=== PATIENT | male | born 1970 | race Caucasian/White ===

== ENCOUNTER 2023-09-18 08:30 | Outpatient (OUT) | payer OTHER, SELFPAY ==
[2023-09-18 08:46] LABS: Basophils Absolute Auto 0.1 10^3/uL (0.0-0.1); Basophils Percent Auto 0.8 % (0.2-2.0); Eosinophils Absolute Auto 0.1 10^3/uL (0.0-0.7); Eosinophils Percent Auto 2.3 % (0.9-7.0); Hemoglobin 14.3 g/dL (14.0-18.0); Immature Granulocytes Abs Auto 0.02 10^3/uL (0.00-0.03); Immature Granulocytes Pct Auto 0.3 % (0.0-0.5); Lymphocytes Absolute Auto 1.9 10^3/uL (1.2-3.8); Lymphocytes Percent Auto 32.1 % (20.5-60.0); Mean Corpuscular HGB Conc 33.3 g/dL (29.9-35.2); Mean Corpuscular Hemoglobin 29.4 pg (25.9-34.0); Mean Corpuscular Volume 88.3 fL (80.0-94.0); Mean Platelet Volume 10.3 fL (9.5-13.5); Monocytes Absolute Auto 0.7 10^3/uL (0.3-0.8); Neutrophils Absolute Auto 3.2 10^3/uL (1.4-6.5); Neutrophils Percent Auto 53.5 % (43.0-75.0); Platelet Count 200 10^3/uL (150-450); Red Blood Count 4.87 10^6/uL (4.70-6.10); Red Cell Distribution Width 12.8 % (11.0-15.0)
[2023-09-18 09:57] LABS: Alanine Aminotransferase 31 U/L (16-63); Albumin Level 3.7 g/dL (3.4-5.0); Alkaline Phosphatase 59 U/L (46-116); Anion Gap 12.7; Aspartate Amino Transferase 19 U/L (15-37); Bilirubin Total 0.4 mg/dL (0.2-1.0); Calcium 9.1 mg/dL (8.5-10.1); Carbon Dioxide 27.5 mmol/L (21.0-32.0); Chloride 104 mmol/L (98-107); Cholesterol 211 mg/dL (<=200); Estimated GFR (African America >60 (>=60); Estimated GFR (Non-African Ame >60 (>=60); Globulin 3.6 g/dL; Glucose 110 mg/dL (74-106); HDL Cholesterol 70 mg/dL (40-60); Potassium 4.2 mmol/L (3.5-5.1); Sodium 140 mmol/L (136-145); Total Protein 7.3 g/dL (6.4-8.2); Triglycerides 49 mg/dL (<=150); VLDL CHOLESTEROL 9.8 mg/dL
[2023-09-18 10:15] LABS: Prostate Specific Antigen Scrn 1.33 ng/mL (<=4.00)
== END 2023-09-18 08:31 | disposition home or self-care (01) ==
LOC: LAB 08:33
PROVIDERS: PCP Internal Medicine; Visit Provider Internal Medicine
DX: Z00.00 Encounter for general adult medical examination without abnormal findings (principal)
CPT/HCPCS: 36415; 80053; 80061; 85025; G0103

== ENCOUNTER 2024-09-23 09:22 | Outpatient (OUT) | payer OTHER, SELFPAY ==
--- OUTSIDE RECORDS SUMMARY | 2024-09-23 09:25 | XMS_ITS | CCD ---
Author Organization [facility] Care Team Providers Care Tubing Oiler Name Role Phone FIDEL, DR ODELL Attending Zuri PARRA, DR ODELL Consulting Unavailable FIDEL, DR ODELL Primary Care Unavailable FIDEL, DR ODELL Admitting Delio Figueredo Unavailable KIMBERLY RUCKER Referring Unavailable KIMBERLY RUCKER Attending Delio Figueredo MD Primary Care Provider NENA LEWIS Attending Unavailable NENA LEWIS Referring Unavailable VITALIY MONTENEGRO Attending VITALIY Renner Referring Unavailable Allergies Allergy Classification Reported Allergen(s) Allergy Type Date of Onset Reaction(s) Facility (1 source) patient allergy list reviewed by nurse or physicia Propensity to adverse reactions 3 Comment:Done [employer] Other Medications Current Medications Medication Drug Class(es) Dates Sig (Normalized) Sig (Original) ascorbic acid 1000 mg oral tablet (4 sources) Vitamin C take 1 tablet by mouth in the morning ascorbic acid (Vitamin C) 1000 MG tablet Take 1,000 mg by mouth in the morning. Active bisacodyl 5 mg delayed release oral tablet (1 source) Stimulant Laxative bisacodyl (Dulcolax) 5 MG EC tablet 1 (one) time each day at the same time. 0 Active carvedilol 12.5 mg oral tablet (2 sources) alpha-Adrenergic Hever, beta-Adrenergic Hever Start: 04-29-2022 take 1 tablet by mouth every twelve hours Carvedilol 12.5 MG 1 tablet with food Orally Twice a day Apr, Active carvedilol (Core g) 25 MG tablet every 12 (twelve) hours. 0 Active chondroitin sulfates 1200 mg / glucosamine sulfate 1500 mg oral capsule (4 sources) Glucosamine-Graeme droitin 500-400 MG capsule 1 (one) time each day at the same time. Active diazePAM 5 mg oral tablet (1 source) Benzodiazepine Start: 2022 diazePAM (Valium) 5 MG table t Indications: Anxiety 1 tablet (5 MG) PO 1 hour prior to MRI, 1 tablet (5 MG) PO immediately before MRI, 1 tablet (5 MG) PRN during MRI 3 tablet 0 11/10/2022 Active diclofenac potassium 50 mg oral tablet (1 source) Nonsteroidal Anti-inflammatory Drug Start: 2022 take 1 tablet by mouth in the morning, then take 1 tablet by mouth in the evening, then take 1 tablet by mouth at bedtime diclofenac (Cataflam) 50 MG tablet Indications: Strain of lumbar region, subsequent encounter Take 1 tablet (50 mg) by mouth in the morning and 1 tablet (50 mg) in the evening and 1 tablet (50 mg) before bedtime. 90 tablet 0 11/13/2022 Active Shallowater (No Known Home Meds) (1 source) Start: 2024 Shallowater (No Known Home Meds) Active September 18, 2024 12:00am Completed/Discontinued Medications Medication Drug Class(es) Dates Sig (Normalized) Sig (Original) amLODIPine 5 mg oral tablet (6 sources) Dihydropyridine Calcium Channel Hever Start: 09-17-2023 End: 09-17-2023 take 1 tablet by mouth once daily Amlodipine 5 mg tablet Discontinued 5 MG PO Daily September 17, 2023 12:00am September 17, 2023 2:34pm Start: 04-29-2022 take 1 tablet by funmi th every twenty-four hours amLODIPine Besylate 5 MG 1 tablet Orally Once a day Apr, Not-Taking azithromycin 250 mg oral tablet (2 sources) Macrolide Antimicrobial Start: 10-23-2022 Azithromycin 250 MG as directed Orally daily for 5 days Oct, Not-Taking citric acid 75 mg/ml / magnesium oxide 21.9 mg/ml / picosulfate sodium 0.0625 mg/ml oral solution (3 sources) Calculi Dissolution Agent, Anti-coagulant Start: 09-09-2020 take 160 mL by mouth in the evening, then take 160 mL by mouth twice daily in the evening Clenpiq 10-3.5-12 MG-GM -GM/160ML 160 ML AT 3:00 PM AND 160 ML AT 9:00 PM Orally TWICE A DAY for 1 days PLEASE CHECK ALLERGIES August, Not-Taking gabapentin 300 mg oral capsule (11 sources) Anti-epileptic Agent Start: 09-17-2023 End: 09-18-2024 take 1 capsule by mouth once daily Gabapentin 300 mg capsule Discontinued 300 MG PO Daily 90 90 November 01, 2023 12:25pm September 18, 2024 3:29pm Start: 09-17-2023 End: 09-17-2023 take 1 capsule by mouth three times daily Gabapentin 300 mg capsule Discontinued 300 MG PO Three times daily September 17, 2023 12:00am September 17, 2023 2:34pm Start: 02-10-2023 take 1 capsule by mo uth every eight hours Gabapentin 300 MG 1 capsule Orally tid Jan, Active nabumetone 500 mg oral tablet (7 sources) Nonsteroidal Anti-inflammatory Drug Start: 09-17-2023 End: 09-17-2023 take 1 tablet by mouth twice daily Nabumetone 500 mg tablet Discontinued 500 MG PO Twice daily September 17, 2023 2:25pm September 17, 2023 2:34pm Start: 04-29-2022 take 1 tablet by funmi every twelve hours Nabumetone 500 MG 1 tablet Orally Twice a day Apr, Not-Taking Problems Active Problems Problem Classification Problem Date Documented Date Episodic/Chronic Disorders of lipid metabolism (2 sources) Hypercholesterolemia; Translations: [Pure hypercholesterolemia, unspecified] 09-16-2024 Chronic Essential hypertension (12 sources) Essential hypertension; Translations: [Essential (primary) hypertension] Chronic Hyperplasia of prostate (3 sources) Nocturia due to benign prostatic hypertrophy; Translations: [Benign prostatic hyperplasia with lower urinary tract symptoms] Chronic Osteoarthritis (6 sources) Osteoarthritis of right knee joint; Translations: [Unilateral primary osteoarthritis, right knee] Onset: 06-03-2023 06-03-2023 Chronic Other and unspecified benign neoplasm (3 sources) Benign neoplasm of colon; Translations: [Benign neoplasm of colon, unspecified] Episodic Other and unspecified benign neoplasm (1 source) Tubular adenoma of colon; Translations: [Benign neoplasm of colon, unspecified] 09-16-2024 Episodic Other and unspecified benign neoplasm (1 source) Benign neoplasm of colon, unspecified; Translations: [Benign neoplasm of colon] 09-18-2024 Episodic Other connective tissue disease (2 sources) History of prosthetic unicompartmental arthroplasty of left knee; Translations: [Presence of left artificial knee joint] 05-11-2024 Chronic Other nervous system disorders (3 sources) Bilateral carpal tunnel syndrome; Translations: [Carpal tunnel syndrome, bilateral upper limbs] Chronic Other non-traumatic joint disorders (2 sources) Pain in left knee; Translations: [Pain in joint, lower leg] 05-22-2024 Episodic Other nutritional; endocrine; and metabolic disorders (3 sources) Obesity; Translations: [Other obesity due to excess calories] Chronic Other nutritional; endocrine; and metabolic disorders (3 sources) Body mass index 30+ - obesity; Translations: [Body mass index (BMI) 31.0-31.9, adult] Chronic Other nutritional; endocrine; and metabolic disorders (3 sources) Overweight; Translations: [Overweight] Episodic Other nutritional; endocrine; and metabolic disorders (2 sources) Overweight; Translations: [Overweight] 09-17-2023 Episodic Other screening for suspected conditions (not mental disorders or infectious disease) (3 sources) Encounter for screening for malignant neoplasm of prostate; Translations: [Patient encounter status] Onset: 09-14-2022 09-16-2024 Episodic Spondylosis; intervertebral disc disorders; other back problems (7 sources) Other intervertebral disc degeneration, lumbar region; Translations: [Lumbar spondylosis] Chronic Spondylosis; intervertebral disc disorders; other back problems (6 sources) Radiculopathy, lumbar region; Translations: [Intervertebral disc disorders with radiculopathy, lumbar region] Onset: 01-08-2023 Episodic Past or Other Problems Problem Classification Problem Date Documented Da te Episodic/Chronic Sprains and strains (7 sources) Strain of muscle, fascia and tendon of lower back, initial encounter; Translations: [Strain of muscle, fascia and tendon of lower back, sequela] Onset: 09-19-2022 Episodic Results Test Name Value Interpretation Reference Range Facility XR Knee - left 1 or 2 Viewso n 05-25-2024 Imaging Result: AP and lateral of left knee showed surgical position and alignment of prosthetic components without evidence of loosening or wear to the femoral, or tibial componenets. The alignment appeared to be anatomic. There was no evidence of accelerated or asymmetric wear to the tibial tray. There was no evidence of fracture and/or dislocation. Impression: Unremarkable left unicompartmental knee arthroplasty. [facility] XR Knee - left 1 or 2 ViewsO rdered By: Peñagracy on 05-25-2024 [facility] [employer] e Work Phone: XR Knee - left 1 or 2 Viewso n 05-22-2024 Radiology Study observation (narrative) [facility] 36on 01-21-2023 36 Spoke to patient. He is not diabetic so sent medrol dose pack to pharmacy. [facility] needs a c9 fro follow up visit with us. Transferred to [facility] line to assist. [facility] 36 Patient stated that the gabapentin isnt working to well. Wants to know what else he can do. [facility] 36on 01-08-2023 36 sent [facility] 36 Patient calling in stating gabapentin was supposed to be sent to his pharmacy, but nothing was sent in. Please advise. [facility] Office Visiton 01-08-2023 Follow-up visit [id number] Chris Morley 1970 M Date Provider Department Center 01/08/2023 KIMBERLY NGUYỄN MP ORTHO MPORTHO No family history on file Level of Service:60772 [place] OFFICE/OUTPATIENT NEW LOW MDM 30-44 MINUTES (GC) Reason for Visit and Comments: New Patient [632] [facility] Telephoneon 01-08-2023 Telephone [id number] Chris Morley 1970 M Date Provider Department Center 01/08/2023 KIMBERLY NGUYỄN MP ORTHO MPORTHO No family history on file [facility] CBC AUTO DIFFon 09-12-2022 BASO # 0.0 103/ul Normal 0.0-0.1 [facility] Comment on above: Performed By: #### C BC #### [facility] [address] [place], [place] [address] Dr. Edward Newell Basophils/100 WBC (Bld) 0.6 % Normal 0.2-2.0 [facility] Comment on above: Performed By: #### C BC #### [facility] [address] [place] [address] Dr. Edward Newell EO # 0.1 103/ul Normal 0.0-0.7 [facility] Comment on above: Performed By: #### C BC #### [facility] [address] [place] [address] Dr. Edward Newell Eosinophils/100 WBC (Bld) 2.1 % Normal 0.9-7.0 [facility] Comment on above: Performed By: #### C BC #### [facility] [address] [place] [address] Dr. Edward Newell Erythrocyte distribution width (RBC) [Ratio] 13.0 % Normal 11.0-15.0 [facility] Comment on above: Performed By: #### C BC #### [facility] [address] [place] [address] Dr. Edward Newell Hematocrit (Bld) [Volume fraction] 43.4 % Normal 42.0-54.0 [facility] Comment on above: Performed By: #### C BC #### [facility] [address] [place] [address] Dr. Edward Newell Hemoglobin (Bld) [Mass/Vol] 14.5 g/dL Normal 14.0-18.0 [facility] Comment on above: Performed By: #### C BC #### [facility] [address] [place] [address] Dr. Edward Newell IG # 0.01 10e3/ul Normal 0.00-0.03 [facility] Comment on above: Performed By: #### C BC #### [facility] [address] [place] [address] Dr. Edward Newell IG % 0.2 % Normal 0.0-0.5 [facility] Comment on above: Performed By: #### C BC #### [facility] [address] [place] [address] Dr. Edward Newell LYMPH # 1.9 103/ul Normal 1.2-3.8 [facility] Comment on above: Performed By: #### C BC #### [facility] [address] [place] [address] Dr. Edward Newell Lymphocytes/100 WBC (Bld) 37.5 % Normal 20.5-60.0 [facility] Comment on above: Performed By: #### C BC #### [facility] [address] [place] [address] Dr. Edward Newell MANUAL DIFF REQ NO Normal [facility] Comment on above: Performed By: #### C BC #### [facility] [address] [place] [address] Dr. Edward Newell MCH (RBC) [Entitic mass] 29.1 pg Normal 25.9-34.0 [facility] Comment on above: Performed By: #### C BC #### [facility] [address] [place] [address] Dr. Edward Newell MCHC (RBC) [Mass/Vol] 33.4 g/dL Normal 29.9-35.2 [facility] Comment on above: Performed By: #### C BC #### [facility] [address] [place] [address] Dr. Edward Newell MCV (RBC) [Entitic vol] 87.0 fL Normal 80.0-94.0 [facility] Comment on above: Performed By: #### C BC #### [facility] [address] [place] [address] Dr. Edward Newell MONO # 0.6 103/ul Normal 0.3-0.8 [facility] Comment on above: Performed By: #### C BC #### [facility] [address] [place] [address] Dr. Edward Newell Monocytes/100 WBC (Bld) 10.6 % Normal 1.7-12.0 [facility] Comment on above: Performed By: #### C BC #### [facility] [address] [place] [address] Dr. Edward Newell NEUT # 2.5 103/ul Normal 1.4-6.5 [facility] Comment on above: Performed By: #### C BC #### [facility] [address] [place] [address] Dr. Edward Newell Neutrophils/100 WBC (Bld) 49.0 % Normal 43.0-75.0 [facility] Comment on above: Performed By: #### C BC #### [facility] [address] [place] [address] Dr. Edward Newell Platelet mean volume (Bld) [Entitic vol] 10.2 fL Normal 9.5-13.5 [facility] Comment on above: Performed By: #### C BC #### [facility] [address] [place] [address] Dr. Edward Newell PLT 197 103/ul Normal 150-450 [facility] Comment on above: Performed By: #### C BC #### [facility] [address] [place] [address] Dr. Edward Newell RBC 4.99 106/ul Normal 4.70-6.10 [facility] Comment on above: Performed By: #### C BC #### [facility] [address] [place] [address] Dr. Edward Newell WBC 5.2 103/ul Normal 4.0-11.0 [facility] Comment on above: Performed By: #### C BC #### [facility] [address] [place] [address] Dr. Edward Newell LIPID PROFILEon 09-12-2022 CHOL-HDL RATIO NORM SEE BELOW Normal [facility] Comment on above: Result Comment: 3.3 - 4.4 LOW RISK 4.4 - 7.1 AVERAGE RISK 7.1 - 11.0 MODERATE RISK >11.0 HIGH RISK Performed By: #### L IPID, CMP #### [facility] [address] [place] [address] Dr. Edward Newell Cholesterol [Mass/Vol] 211 mg/dL Critically high <=200 [facility] Comment on above: Performed By: #### L IPID, CMP #### [facility] [address] [place] [address] Dr. Edward Newell Cholesterol in HDL [Mass/Vol] 46 mg/dL Normal 40-60 [facility] Comment on above: Performed By: #### L IPID, CMP #### [facility] [address] [place] [address] [address] Edward Newell Cholesterol in LDL [Mass/Vol] 142.6 mg/dL Normal [facility] Comment on above: Performed By: #### L IPID, CMP #### [facility] [address] [place] [address] [address] Edward Newell Cholesterol.total/C holesterol in HDL [Mass ratio] 4.6 {ratio} Normal [facility] Comment on above: Performed By: #### L IPID, CMP #### [facility] [address] [place] [address] [address] Edward Newell HDL NORMAL > or = 60 mg/dl - LO W CARDIOVASCULAR RISK <40 mg/dl - HIGH CARDIOVASCULAR RISK Normal [facility] Comment on above: Performed By: #### L IPID, CMP #### [facility] [address] [place] [address] [address] Edward Newell LDL CALC NORMAL SEE BELOW Normal [facility] Comment on above: Result Comment: <100 mg/dl OPTIMAL 100 - 129 mg/dl NEAR OR ABOVE OPTIMAL 130 - 159 mg/dl BORDERLINE HIGH 160 - 189 mg/dl HIGH >190 mg/dl VERY HIGH Performed By: #### L IPID, CMP #### [facility] [address] [place] [address] [address] Edward Newell Triglyceride [Mass/Vol] 112 mg/dL Normal <=150 [facility] Comment on above: Performed By: #### L IPID, CMP #### [facility] [address] [place] [address] Dr. Edward Newell VLDL CALC 22.4 mg/dL Normal [facility] Comment on above: Performed By: #### L IPID, CMP #### [facility] [address] [place] [address] [address] Edward Newell PROF 14(COMP METB)on 023 Albumin [Mass/Vol] 4.1 g/dL Normal 3.4-5.0 [facility] Comment on above: Performed By: #### L IPID, CMP #### [facility] [address] [place] [address] Dr. Edward Newell Albumin/Globulin [Mass ratio] 1.2 {ratio} Normal [facility] Comment on above: Performed By: #### L IPID, CMP #### [facility] [address] [place] [address] Dr. Edward Newell ALP [Catalytic activity/Vol] 51 U/L Normal 46-116 [facility] Comment on above: Performed By: #### L IPID, CMP #### [facility] [address] [place] [address] [address] Edward Newell ALT [Catalytic activity/Vol] 45 U/L Normal 16-63 [facility] Comment on above: Performed By: #### L IPID, CMP #### [facility] [address] [place] [address] Dr. Edward Newell Anion gap [Moles/Vol] 14.5 mmol/L Normal [facility] Comment on above: Performed By: #### L IPID, CMP #### [facility] [address] [place] [address] Dr. Edward Newell AST [Catalytic activity/Vol] 23 U/L Normal 15-37 [facility] Comment on above: Performed By: #### L IPID, CMP #### [facility] [address] [place] [address] Dr. Edward Newell Bilirubin [Mass/Vol] 0.5 mg/dL Normal 0.2-1.0 [facility] Comment on above: Performed By: #### L IPID, CMP #### [facility] [address] [place] [address] Dr. Edward Newell Calcium [Mass/Vol] 9.1 mg/dL Normal 8.5-10.1 [facility] Comment on above: Performed By: #### L IPID, CMP #### [facility] [address] [place] [address] Dr. Edward Newell Chloride [Moles/Vol] 104 mmol/L Normal 98-107 [facility] Comment on above: Performed By: #### L IPID, CMP #### [facility] [address] [place] [address] Dr. Edward Newell CO2 [Moles/Vol] 27.5 mmol/L Normal 21.0-32.0 [facility] Comment on above: Performed By: #### L IPID, CMP #### [facility] [address] [place] [address] [address] Edward Newell Creatinine [Mass/Vol] 0.80 mg/dL Normal 0.70-1.30 [facility] Comment on above: Performed By: #### L IPID, CMP #### [facility] [address] [place] [address] [address] Edward Newell EGFR-AF YEMENI >60 Normal >=60 [facility] Comment on above: Performed By: #### L IPID, CMP #### [facility] [address] [place] [address] Dr. Edward Newell EGFR-NON AF YEMENI >60 Normal >=60 [facility] Comment on above: Performed By: #### L IPID, CMP #### [facility] [address] [place] [address] [address] Edward Newell Globulin (S) [Mass/Vol] 3.4 g/dL Normal [facility] Comment on above: Performed By: #### L IPID, CMP #### [facility] [address] [place] [address] Dr. Edward Newell Glucose [Mass/Vol] 102 mg/dL Normal 74-106 [facility] Comment on above: Performed By: #### L IPID, CMP #### [facility] [address] [place] [address] [address] Edward Newell Potassium [Moles/Vol] 4.0 mmol/L Normal 3.5-5.1 [facility] Comment on above: Performed By: #### L IPID, CMP #### [facility] [address] [place] [address] Dr. Edward Newell Protein [Mass/Vol] 7.5 g/dL Normal 6.4-8.2 [facility] Comment on above: Performed By: #### L IPID, CMP #### [facility] [address] [place] [address] Dr. Edward Newell Sodium [Moles/Vol] 142 mmol/L Normal 136-145 [facility] Comment on above: Performed By: #### L IPID, CMP #### [facility] [address] [place] [address] [address] Edward Newell Urea nitrogen [Mass/Vol] 18.0 mg/dL Normal 7.0-18.0 [facility] Comment on above: Performed By: #### L IPID, CMP #### [facility] [address] [place] [address] [address] Edward Newell Urea nitrogen/Creatinine [Mass ratio] 22.5 mg/mg Normal [facility] Comment on above: Performed By: #### L IPID, CMP #### [facility] [address] [place] [address] [address] 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 Insurance GROUPERS: 470 MS[employer]DRG [employer] HIP AND KNEE JOINT REPLACEMENT OR REATTACHMENT OF LOWER EXTREMITY WITHOUT CUSTODIAL Low Trim 0 High Trim 999 DIAGNOSES: ADMIT DX: M17.12 Unilateral primary osteoarthritis, left knee REASON FOR VISIT DX: FINAL DX: PRINCIPAL: M17.12 Y Unilateral primary osteoarthritis, left knee SECONDARY: I10 Y Essential (primary) hypertension E66.9 Y Obesity, unspecified Z86.16 1 Personal history of COVID-19 PROCEDURES: DOCTOR NAME DATE Replacement of Left Knee Joint LanVitaliy And 05/20/2020 with Medial Unicondylar Synthetic Substitute, Cemented, Open Approach NOTE: The code number assigned matches the documented diagnosis and / or procedure in the patient's chart. However, the narrative phrase printed from the coding software may appear abbreviated, or result in slightly different terminology. Coded By: Minal Campbell Date Saved: 05/22/2020 07:00 am [facility] Consent Formson 05-22-2020 Consent Forms [id number] .00OTGTIFF [facility] Discharge Instructionson Discharge Instructions [id number] [facility] Medication Management [id number] .[facility] Provider Orderson 05-22-2020 Provider Orders [id number] .[facility] Tele[facility] Stripson Telemetry Strips [id number] [facility] Consultation/Specialist Note on 05-21-2020 Consultation/Specia list Note Patient: CHRIS MORLEY Age: 50 years Sex: MALE : 1970 Associated Diagnoses: None Author: NENA LEWIS Basic Information 1 day s/p LT partial knee replacement (DOS 05/20/2020) Subjective pt doing well now, he had a very rough night overnight. He had to take dilaudid to help control the pain, the pain is better about 5/10. Review of Systems denies chest pain, nausea and shortness of breath Health Status Allergies: Allergic Reactions (All) No known allergies Objective dressing clean dry and intact, negative homans sign, epc cuffs intact, dorsalis pedis and posterior tibialis pulses palpable Impression and Plan d/c home once pain well controlled and has been up with P.T. at least twice more. f/u in office within 2 weeks [Electronically Signed on: 05/21/2020 07:55 EST] NENA LEWIS [Verified on: 05/21/2020 07:55 EST] NENA LEWIS [facility] Education Noteon 05-21-2020 Education Note Education Materials POST OPERATIVE KNEE ARTHROSCOPY DISCHARGE INSTUCTIONS SURGEONS WRITTEN INSTRUCTIONS: Ice and elevate operative knee as needed to reduce pain and swelling for the next 48 hours Range of motion to the operative knee/ankle pumps 10 times/hour Walk with crutches; bear weight to tolerance on operative leg Change your dressing in 24 hours, you may then shower. Rewrap the knee with lupillo wrap Take Aspirin 325mg /day to prevent blood clots (DVT) Take pain medication as prescribed Follow up as scheduled WHAT YOU SHOULD KNOW AFTER YOUR OPERARTION: If you need pain pills, start before pain becomes intense. Pain pills are frequently less upsetting to your stomach if you take them with food such as crackers or bread. If you have excessive or persistent pain, swelling, bleeding, nausea, vomiting or any other problems, you should first call your surgeon for advice. If you are unable to contact your surgeon, seek help from the emergency room. FOR THE PREVENTION OF DVT AFTER LOWER EXTREMITY SURGERY What is a DVT? There is always the risk of DVT after lower extremity surgery. DVT, or deep vein thrombosis, is a blood clot in a major vein that may partially or completely block the flow of blood. The clot occurs in the legs or pelvis, in areas where blood flow is slow, or in an injured blood vessel. DVT can be life-threatening should pieces of the clot break away and travel to the lungs. This is called pulmonary embolism What are the symptoms of DVT? The area affected by the blood clot may become swollen and painful, and possibly turn red as the normal flow of blood is blocked. You may also develop edema, which is the build up of fluid in the skin tissues surrounding the clot. If the clot is somewhere other than your leg, there may be no physical signs of DVT. If the clot breaks away and travels to your lungs, you may experience shortness of breath and chest pain. If this occurs you should call your doctor immediately or go to the emergency room. How can I prevent DVT? You should keep active. Moving the ankle and foot and bending the knee as tolerated when you are in bed and walking as tolerated. Take medication, especially the Aspirin, as prescribed by your doctor. What should I do if I think I have a DVT? You should call your doctor or go to the emergency room any time you have a sudden and unusual shortness of breath that is not related to exercise, exertion or anxiety. If you have swelling with redness and pain in your leg, you should call your doctor immediately. If there is concern then a test called ?Venous Doppler? can be done to rule of a DVT. Knee Rehabilitation in the Home After knee surgery, it is important to follow instructions from your health care provider about rehabilitation (rehab). It is important to design a program that is safe and effective for you. Your health care provider and rehabilitation therapist will work with you to meet your specific abilities and needs. What are the benefits? Knee rehab can help to: ? Strengthen your knee. ? Improve the flexibility and movement (range of motion) of your knee joint. ? Reduce swelling. ? Improve blood flow and prevent blood clots. How to do exercises at home ? Continue exercises at home that your health care provider or physical therapist instructed you to do in the hospital. ? Before you exercise: ? Take pain medicines, if told by your health care provider. Do not take the medicine if it makes you feel dizzy or sleepy. ? Do a warm-up activity, such as gentle walking or riding a stationary bike, as told by your health care provider. Doing that warms up your muscles and helps to prevent injury. ? While doing exercises: ? When standing, make sure you are near something sturdy that you can hold onto for balance, such as a heavy chair or the wall. ? Do exercises exactly as told by your health care provider and adjust them as directed. ? As you are recovering, choose an exercise pace that is comfortable for you, and gradually work up to your goal. ? Do not force your knee to bend. ? Do not exercise in a pool (aquatic therapy) until your incision is healed and your health care provider says that you can. Follow these instructions at home: Activity ? Do not use your knee to support (bear) your body weight until your health care provider says that you can. Follow weight-bearing restrictions as told. Use crutches or a walker as told by your health care provider. ? Do not twist or kneel on your injured knee. ? Ask your health care provider what activities are safe for you during recovery, and ask what activities you need to avoid. ? Avoid sitting for a long time without moving. Get up to take short walks every 1?2 hours. Ask for help if you feel weak or unsteady. Managing pain, stiffness, and swelling ? Put ice on affected areas after you exercise, or as needed. Icing can help to relieve joint pain and swelling. ? Put ice in a plastic bag or use the icing device (cold flow pad or cold therapy unit) that you were given. Follow instructions from your health care provider about how to use the icing device. ? Place a towel between your skin and the bag or device. ? Leave the ice on for 20 minutes, 2?3 times a day. ? If directed, apply heat to affected areas before you exercise, or as needed. Heat can reduce the stiffness of your muscles and joints. Use the heat source that your health care provider recommends, such as a moist heat pack or a heating pad. ? Place a towel between your skin and the heat source. ? Leave the heat on for 20?30 minutes. ? Remove the heat if your skin turns bright red. This is especially important if you are unable to feel pain, heat, or cold. You may have a greater risk of getting burned. ? Wear compression stockings as told by your health care provider. These stockings help to prevent blood clots and reduce swelling in your legs. ? Raise (elevate) your legs while sitting or lying down. Do not place your knee on top of pillows to elevate it. Keep your legs straight to prevent your knee from getting stuck in a bent position (contracture). Preventing falls ? Keep your home well-lit and clutter-free, especially in walkways and stairways. Keep floors dry and use non-skid mats. ? Remove tripping hazards from floors, such as throw rugs and cords. ? Install grab bars in bathrooms, and put night-lights in your bedroom and bathroom. ? Wear closed-toe shoes that fit well and support your feet. Wear shoes that have rubber soles or low heels. ? Talk with your health care provider about the iuvb-hcg-fygzprs and prescription medicines that you are taking. Some medicines can cause dizziness or changes in blood pressure, which increase your risk of falling. General recommendations ? Teach your family about your condition and how they can participate in your recovery. Include them during a physical therapy session. ? Keep all follow-up visits as told by your health care provider and physical therapist. This is important. Questions to ask your health care provider ? What exercises are safe for me to do? ? How often should I do the exercises? ? How can I manage the pain during exercise? ? What other activities are safe for me to do? Contact a health care provider if: ? You have questions about how to do exercises correctly. ? You have increased difficulty bending your knee. ? You have knee pain that does not go away after you rest and take pain medicines. ? Your prosthesis feels loose. ? You are not able to do exercises. Get help right away if: ? You fall. ? Your incision from surgery breaks open. Summary ? Knee rehab can help to strengthen your knee and improve the flexibility and movement (range of motion) of your knee joint. ? Continue exercises at home that your health care provider or physical therapist instructed you to do in the hospital. ? Call your health care provider if you have questions about how to do exercises correctly. This information is not intended to replace advice given to you by your health care provider. Make sure you discuss any questions you have with your health care provider. Document Released: 04/05/2006 Document Revised: 03/18/2018 Document Reviewed: 02/28/2018 [employer] Patient Education ? 2019 [employer] Normal [facility] Inpatient Patient Summaryon 05-21-2020 [place] [address] Patient Discharge Instructions Name: CHRIS MORLEY : 1970 Patient Address: [address] [place] [address] Primary Care Provider: Name: Delio Parra After you are discharged if you find you have any questions, please, call [phone] ext [phone] to speak to a nurse. Discharge Diagnosis: Knee pain; Preop testing; Primary osteoarthritis of left knee Prescription Information: If you have been given a prescription for narcotics, seek immediate medical attention if you have any difficulty breathing or any sudden status changes such as confusion and sleepiness. If you or anyone you know is experiencing suicidal thoughts, mental health, alcohol and/or drug addiction problems; contact the [facility] 09/11 Crisis Hotline -Text 4HOPE to 089073. If you received any narcotics, sedation, or any other medication that causes drowsiness for the next 24 hours, unless otherwise directed: ? Do not drive a car. ? Do not operate machinery such as power tools, lawn mowers, drills, sewing machines, or stoves ? Avoid alcoholic beverages and drugs for allergies, nerves, or sleep ? Do not make important personal or business decisions or sign any legal documents [facility] would like to thank you for allowing us to assist you with your healthcare needs. The following includes patient education materials and information regarding your injury/illness. CHRIS MORLEY has been given the following list of follow-up instructions, prescriptions, and patient education materials: Follow-up Instructions With: Address: When: Vitaliy Montenegro [address] [place] [address], [facility] [address] [place] [address] Business (1) 05/30/2020 1:00 PM With: Address: When: Delio Parra [address] [place] [id number] Business (1) Medications During the course of your visit, your medication list was updated with the most current information. The details of those changes are reflected below: Medications to Continue That Have Not Changed Other Medications aspirin (aspirin 325 mg oral delayed release tablet) 1 tab(s) Oral every day. carvedilol (Coreg 25 mg oral tablet) 1 tab(s) Oral 2 times a day. ferrous sulfate (ferrous sulfate 325 mg (65 mg elemental iron) oral delayed release tablet) 1 tab(s) Oral every day. oxyCODONE (OxyCODONE 5 mg tab) 1 tab(s) Oral Every 6 hours as needed for pain. It is important to always keep an active list of medications available so that you can share with other providers and manage your medications appropriately. As an additional courtesy, we are also providing you with your final active medications list that you can keep with you. aspirin (aspirin 325 mg oral delayed release tablet) 1 tab(s) Oral every day. carvedilol (Coreg 25 mg oral tablet) 1 tab(s) Oral 2 times a day. ferrous sulfate (ferrous sulfate 325 mg (65 mg elemental iron) oral delayed release tablet) 1 tab(s) Oral every day. oxyCODONE (OxyCODONE 5 mg tab) 1 tab(s) Oral Every 6 hours as needed for pain. Take only the medications listed above. Contact your doctor prior to taking any medications not on this list. Medication leaflets, if any, will display below Diet & Activity Patient Activity Level: Patient Diet: Regular Patient Activity Restrictions: Patient education materials, if any, will display below POST OPERATIVE KNEE ARTHROSCOPY DISCHARGE INSTUCTIONS SURGEONS WRITTEN INSTRUCTIONS: Ice and elevate operative knee as needed to reduce pain and swelling for the next 48 hours Range of motion to the operative knee/ankle pumps 10 times/hour Walk with crutches; bear weight to tolerance on operative leg Change your dressing in 24 hours, you may then shower. Rewrap the knee with lupillo wrap Take Aspirin 325mg /day to prevent blood clots (DVT) Take pain medication as prescribed Follow up as scheduled WHAT YOU SHOULD KNOW AFTER YOUR OPERARTION: If you need pain pills, start before pain becomes intense. Pain pills are frequently less upsetting to your stomach if you take them with food such as crackers or bread. If you have excessive or persistent pain, swelling, bleeding, nausea, vomiting or any other problems, you should first call your surgeon for advice. If you are unable to contact your surgeon, seek help from the emergency room. FOR THE PREVENTION OF DVT AFTER LOWER EXTREMITY SURGERY What is a DVT? There is always the risk of DVT after lower extremity surgery. DVT, or deep vein thrombosis, is a blood clot in a major vein that may partially or completely block the flow of blood. The clot occurs in the legs or pelvis, in areas where blood flow is slow, or in an injured blood vessel. DVT can be life-threatening should pieces of the clot break away and travel to the lungs. This is called pulmonary embolism What are the symptoms of DVT? The area affected by the blood clot may become swollen and painful, and possibly turn red as the normal flow of blood is blocked. You may also develop edema, which is the build up of fluid in the skin tissues surrounding the clot. If the clot is somewhere other than your leg, there may be no physical signs of DVT. If the clot breaks away and travels to your lungs, you may experience shortness of breath and chest pain. If this occurs you should call your doctor immediately or go to the emergency room. How can I prevent DVT? You should keep active. Moving the ankle and foot and bending the knee as tolerated when you are in bed and walking as tolerated. Take medication, especially the Aspirin, as prescribed by your doctor. What should I do if I think I have a DVT? You should call your doctor or go to the emergency room any time you have a sudden and unusual shortness of breath that is not related to exercise, exertion or anxiety. If you have swelling with redness and pain in your leg, you should call your doctor immediately. If there is concern then a test called ?Venous Doppler? can be done to rule of a DVT. Knee Rehabilitation in the Home After knee surgery, it is important to follow instructions from your health care provider about rehabilitation (rehab). It is important to design a program that is safe and effective for you. Your health care provider and rehabilitation therapist will work with you to meet your specific abilities and needs. What are the benefits? Knee rehab can help to: ? Strengthen your knee. ? Improve the flexibility and movement (range of motion) of your knee joint. ? Reduce swelling. ? Improve blood flow and prevent blood clots. How to do exercises at home ? Continue exercises at home that your health care provider or physical therapist instructed you to do in the hospital. ? Before you exercise: ? Take pain medicines, if told by your health care provider. Do not take the medicine if it makes you feel dizzy or sleepy. ? Do a warm-up activity, such as gentle walking or riding a stationary bike, as told by your health care provider. Doing that warms up your muscles and helps to prevent injury. ? While doing exercises: ? When standing, make sure you are near something sturdy that you can hold onto for balance, such as a heavy chair or the wall. ? Do exercises exactly as told by your health care provider and adjust them as directed. ? As you are recovering, choose an exercise pace that is comfortable for you, and gradually work up to your goal. ? Do not force your knee to bend. ? Do not exercise in a pool (aquatic therapy) until your incision is healed and your health care provider says that you can. Follow these instructions at home: Activity ? Do not use your knee to support (bear) your body weight until your health care provider says that you can. Follow weight-bearing restrictions as told. Use crutches or a walker as told by your health care provider. ? Do not twist or kneel on your injured knee. ? Ask your health care provider what activities are safe for you during recovery, and ask what activities you need to avoid. ? Avoid sitting for a long time without moving. Get up to take short walks every 1?2 hours. Ask for help if you feel weak or unsteady. Managing pain, stiffness, and swelling ? Put ice on affected areas after you exercise, or as needed. Icing can help to relieve joint pain and swelling. ? Put ice in a plastic bag or use the icing device (cold flow pad or cold therapy unit) that you were given. Follow instructions from your health care provider about how to use the icing device. ? Place a towel between your skin and the bag or device. ? Leave the ice on for 20 minutes, 2?3 times a day. ? If directed, apply heat to affected areas before you exercise, or as needed. Heat can reduce the stiffness of your muscles and joints. Use the heat source that your health care provider recommends, such as a moist heat pack or a heating pad. ? Place a towel between your skin and the heat source. ? Leave the heat on for 20?30 minutes. ? Remove the heat if your skin turns bright red. This is especially important if you are unable to feel pain, heat, or cold. You may have a greater risk of getting burned. ? Wear compression stockings as told by your health care provider. These stockings help to prevent blood clots and reduce swelling in your legs. ? Raise (elevate) your legs while sitting or lying down. Do not place your knee on top of pillows to elevate it. Keep your legs straight to prevent your knee from getting stuck in a bent position (contracture). Preventing falls ? Keep your home well-lit and clutter-free, especially in walkways and stairways. Keep floors dry and use non-skid mats. ? Remove tripping hazards from floors, such as throw rugs and cords. ? Install grab bars in bathrooms, and put night-lights in your bedroom and bathroom. ? Wear closed-toe shoes that fit well and support your feet. Wear shoes that have rubber soles or low heels. ? Talk with your health care provider about the nxzw-swu-cljezva and prescription medicines that you are taking. Some medicines can cause dizziness or changes in blood pressure, which increase your risk of falling. General recommendations ? Teach your family about your condition and how they can participate in your recovery. Include them during a physical therapy session. ? Keep all follow-up visits as told by your health care provider and physical therapist. This is important. Questions to ask your health care provider ? What exercises are safe for me to do? ? How often should I do the exercises? ? How can I manage the pain during exercise? ? What other activities are safe for me to do? Contact a health care provider if: ? You have questions about how to do exercises correctly. ? You have increased difficulty bending your knee. ? You have knee pain that does not go away after you rest and take pain medicines. ? Your prosthesis feels loose. ? You are not able to do exercises. Get help right away if: ? You fall. ? Your incision from surgery breaks open. Summary ? Knee rehab can help to strengthen your knee and improve the flexibility and movement (range of motion) of your knee joint. ? Continue exercises at home that your health care provider or physical therapist instructed you to do in the hospital. ? Call your health care provider if you have questions about how to do exercises correctly. This information is not intended to replace advice given to you by your health care provider. Make sure you discuss any questions you have with your health care provider. Document Released: 04/05/2006 Document Revised: 03/18/2018 Document Reviewed: 02/28/2018 [employer] Patient Education ? 2019 [employer] Viruses or Bacteria What?s got you sick? Antibiotics only treat bacterial infections. Viral illnesses cannot be treated with antibiotics. When an antibiotic is not prescribed, ask your healthcare professional for tips on how to relieve symptoms and feel better. Usual Cause Illness Viruses Bacteria Antibiotic Needed Cold/Runny Nose ? NO Bronchitis/Chest Cold (in otherwise healthy children and adults) ? NO Whooping Cough ? Yes Flu ? NO Strep Throat ? Yes Sore Throat (except strep) ? NO Fluid in the middle ear (otitis media with effusion) ? NO Urinary Tract Infection ? Yes Antibiotics Aren?t Always the Answer www.cdc.gov/getsmart GET SMART Know When Antibiotics Work U.S. Department of Health and Human Services Centers for Disease Control and Prevention December 2013 [facility] Pharmacy Noteon 05-21-2020 Pharmacy Note I have personally reviewed this patient's current medication list including prescription medications, OTC products, vitamins and supplements for the following: Home Medication Review Home medications reviewed as follows: Home Medications (4) Active aspirin 325 mg oral delayed release tablet 325 mg = 1 tab(s), PO, Daily Coreg 25 mg oral tablet 25 mg = 1 tab(s), PO, BID ferrous sulfate 325 mg (65 mg elemental iron) oral delayed release tablet 325 mg = 1 tab(s), PO, Daily OxyCODONE 5 mg tab 1 tab(s), PRN, PO, q6hr Status of Medication History: Complete Source of Information: External Medication Review/Pharmacy Records Changes Made: ASA and oxycodone added - both per Dr. Montenegro for patient upon D/C Renal Function: Estimated CrCl: missing data Action: patient being discharged home - no further follow up Anticoagulation or Prophylaxis: ASA Action: none required Antibiotics: None Action: None required Pain Management: Scheduled non-narcotic: Celebrex, IV APAP (stopping this AM), Lyrica prn narcotic pain medication(s): Oxycodone 5mg - moderate pain; 10mg - severe pain prn non-narcotic pain medication(s): PO Acetaminophen and PO ketorolac - both mild pain Bowel regimen medication(s): scheduled docusate BID and prn bisacodyl suppository Action: OARRS and risk factors reviewed - patient being discharged this afternoon - will have furnace charger follow up with ortho re: duplicate PO prn pain medications for mild pain. [Electronically Signed on: 05/21/2020 09:19 EST] Mili Guevara PharmD [Verified on: 05/21/2020 09:19 EST] Mili Guevara PharmD [facility] Anesthesia Noteon 05-20-2020 Anesthesia Note Patient: CHRIS MORLEY Age: 50 years Sex: MALE : 1970 Associated Diagnoses: None Author: Amadeo Quintana MD Preoperative Information Anesthesia history: Patient history: No difficult intubation, No malignant hyperthermia. Family history: No malignant hyperthermia. Review of Systems Respiratory: No shortness of breath, No apnea. Cardiovascular: No known IA, No chest pain. Gastrointestinal: No heartburn. covid starting 04/24/20 - resolved within a week Health Status Allergies: Allergic Reactions (All) No known allergies Current medications: Home Medications (2) Active Coreg 25 mg oral tablet 25 mg = 1 tab(s), PO, BID ferrous sulfate 325 mg (65 mg elemental iron) oral delayed release tablet 325 mg = 1 tab(s), PO, Daily Problem list (past medical history): No problem items selected or recorded. Histories Family History: Heart disease Father Comments: 04/23/2020 13:17 Rachel Hankins RN Stent placement Coronary heart disease Father Procedure history: Arthroscopy of knee with meniscus repair ([id number]). Comments: 04/23/2020 13:10 Rachel Hankins RN 2009 Appendectomy; ([id number]). Comments: 04/23/2020 13:11 Rachel Hankins RN 1982 Social History Electronic Cigarette/Vaping Assessment Electronic Cigarette Use: Never. Alcohol Assessment Use: Current. Liquor, 1-2 times per year Tobacco Assessment Never (less than 100 in lifetime) Tobacco Use:. Substance Abuse Assessment Substance use: Never. 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 Home/Environment Assessment Lives with Children, Spouse. Living situation: Home/Independent. Nutrition/Health Assessment Regular . Physical Examination VS/Measurements Vital Signs (last 24 hrs) Last Charted Heart Rate Peripheral 85 bpm (MAY 20:) Resp Rate 16 br/min (MAY 20:) SBP 136 mmHg (MAY 20:) DBP H 94mmHg (MAY 20:) SpO2 95 % (MAY 20:) Weight 105.3 kg (MAY 20:) General: Alert and oriented, No acute distress. Airway: Mallampati classification: II (soft palate, fauces, uvula visible). Mouth: Within normal limits. Respiratory: Respirations are non-labored. Cardiovascular: Normal rate. Review / Management Laboratory Results ECG interpretation: SR, IRBBB, poss LAE. Plan [place] [employer]#( A) physical status classification: Class II. Anesthetic Preoperative Plan Anesthesia: Regional (Spinal, adductor canal nerve block). Anesthetic plan, risks, benefits, and alternatives discussed with the patient and/or family. Patient verbalized understanding. Informed consent was given. Consent was signed by the patient. [Electronically Signed on: 05/20/2020 08:05 EST] Amadeo Quintana MD [Verified on: 05/20/2020 08:05 EST] Amadeo Quintana MD [facility] History and Physicalon 05-20 History and Physical [id number] [facility] MAGR Intraoperative Recordon 05-20-2020 MAGR Intraoperative Record MAGR Intra-Op Record Summary Primary Physician: Vitaliy Montenegro DO Finalized Date/Time: 05/20/20 12:17:52 Pt. Name: SALMACHRIS/Sex: 1970 MALE Med Rec #: [id number] Physician: Vitaliy Montenegro DO Financial #: [id number] Pt. Type: I Room/Bed: Admit/Disch: 05/20/20 06:48:00 - Institution: Case Times MAGR Entry 1 Patient In Room Time 05/20/20 10:26:00 Out Room Time 05/20/20 12:15:00 Anesthesia Start Time 05/20/20 10:26:00 Stop Time 05/20/20 12:14:00 Surgery Start Time 05/20/20 10:59:00 Stop Time 05/20/20 12:10:00 Last Modified By: Rosanne Anderson RN 05/20/20 12:16:42 Case Attendance MAGR Entry 1 Entry 2 Entry 3 Case Attendee Vitaliy Montenegro Satya S MD Long, Barbara RN Andrew DO Role Performed Surgeon - Primary Anesthesiologist of Appeals Officer Record Time In 05/20/20 10:26:00 05/20/20 10:26:00 05/20/20 10:26:00 Time Out 05/20/20 12:15:00 05/20/20 12:15:00 05/20/20 12:15:00 Procedure Arthroplasty Knee Arthroplasty Knee Arthroplasty Knee Unicompartmental(Left ) Unicompartmental(Left ) Unicompartmental(Left ) Last Modified By: Rosanne Anderson RN, Barbara RN Long, Barbara RN 05/20/20 12:16:50 05/20/20 12:16:50 05/20/20 12:16:50 Entry 4 Entry 5 Entry 6 Case Attendee Catracho Brock BENCH MECHANIC Sandro BENCH MECHANIC/CSFA, [address] BENCH MECHANIC Gris BENCH MECHANIC Role Performed Scrub Personnel Family Intervention Specialist Family Intervention Specialist Time In 05/20/20 10:26:00 05/20/20 10:26:00 05/20/20 10:26:00 Time Out 05/20/20 12:15:00 05/20/20 12:15:00 05/20/20 12:15:00 Procedure Arthroplasty Knee Arthroplasty Knee Arthroplasty Knee Unicompartmental(Left ) Unicompartmental(Left ) Unicompartmental(Left ) Last Modified By: Rosanne Anderson RN, Barbara RN Long, Barbara RN 05/20/20 12:16:50 05/20/20 12:16:50 05/20/20 12:16:50 General Comments: Valentin cuevas rep Surgical Procedures MAGR Pre-Care Text: A.20 Verifies operative procedure, surgical site, and laterality Im.150 Develops individualized plan of care Entry 1 Entry 2 Procedure Arthroplasty Knee Arthroplasty Knee Total Unicompartmental Primary Procedure Yes No Primary Surgeon Vitaliy Montenegro James Andrew DO Andrew DO Modifiers Left Surgeon Comment LEFT UNI VS LEFT TOTAL KNEE Start 05/20/20 10:59:00 05/20/20 10:59:00 Stop 05/20/20 12:10:00 05/20/20 12:10:00 Anesthesia Type Spinal General Surgical Service Orthopedics Orthopedics Wound Class Clean Clean Technique Details Closure Technique Primary N/A Entire procedure No No was performed via laparoscope or robotic assistance Last Modified By: Rosanne Anderson RN, Barbara RN 05/20/20 12:16:44 05/20/20 12:16:44 Post-Care Text: O.730 The patient's care is consistent with the individualized perioperative plan of care General Case Data MAGR Pre-Care Text: A.350.1 Classifies surgical wound Entry 1 Case Information OR MAGR OR 01 Case Level Level 5 Wound Class Clean Specialty Orthopedics ASA Class 2 Diagnosis Preop Diagnosis DJD LEFT KNEE Postop Same As Preop Yes Postop Diagnosis DJD LEFT KNEE Blunt or No Is the procedure No penetrating injury considered occured prior to Emergent/Urgent? the start of the procedure: Last Modified By: Rosanne Anderson RN 05/20/20 11:11:31 Post-Care Text: O.760 Patient receives consistent and comparable care regardless of the setting Time Out MAGR Entry 1 Time out date/time 05/20/20 10:58:00 All team members Yes have introduced themselves by name and role Surgeon, Yes Surgeon reviews Yes anesthesia, nurse critical or confirm patient, unexpected steps, site, procedure operative duration, anticipated blood loss Anesthesia team Yes Nursing team Yes reviews any reviews sterility patient-specific (including concerns indicator results) and equipment issues/concerns Antibiotic Antibiotic Yes Administration Time 10:23 prophylaxis given within the last 60 minutes Last Modified By: Rosanne Anderson RN 05/20/20 11:22:22 Patient Positioning MAGR Pre-Care Text: A.280 Identifies baseline musculoskeletal status Im.40 Positions the patient Im.80 Applies safety devices Entry 1 Procedure Arthroplasty Knee Total Body Position Supine Left Arm Position Extended on padded arm Right Arm Position Extended on padded arm board board Left Leg Position Extended Right Leg Position Extended Feet Uncrossed? Yes Press Points Checked Yes Positioning Device Arm Boards, Arm Strap, Outcome Met (O.80) Yes Pillow, Safety Strap Last Modified By: Rosanne Anderson RN 05/20/20 11:22:42 Post-Care Text: E.290 Evaluates musculoskeletal status O.80 Patient is free from signs and symptoms of injury related to positioning General Comments: knee bowie to left knee Skin Prep MAGR Pre-Care Text: A.30 Verifies allergies Im.270 Performs skin preparation Im.270.1 Implements protective measures to prevent skin and tissue injury due to chemical sources Entry 1 Skin Prep Syntegrity Prep Agents (Im.270) Chlorhexidine Gluconate Prep By Rosanne Anderson RN and Alcohol Prep Area (Im.270) Knee, Leg, Foot Skin Prep Agent Dry Yes Without Pooling Hair Removal Syntegrity Hair Removal Methods No hair removal performed Outcome Met (O.100) Yes Last Modified By: Rosanne Anderson RN 05/20/20 11:23:15 Post-Care Text: E.10 Evaluates for signs and symptoms of physical injury to skin and tissue O.100 Patient is free from signs and symptoms of chemical injury Counts Verification MAGR Pre-Care Text: A.20 Verifies operative procedure, surgical site, and laterality A.20.2 Assesses the risk for unintended retained foreign body Im.20 Performs required counts Entry 1 Procedure Arthroplasty Knee Total Counts Verification Initial Counts Items included in Sponges, Sharps Initial Counts Manual the Initial Count Method Initial Counts Rosanne Anderson RN, Initial Count Time 05/20/20 10:45:00 Performed By Catracho Brock BENCH MECHANIC Counts Verification Final Counts Items Included in Sponges, Sharps Final Count Method Manual Final Count Final Count Status Correct Final Counts Rosanne Anderson RN, Performed By Catracho Brock BENCH MECHANIC Final Count Time 05/20/20 11:53:00 Surgeon notified of Yes final counts status Outcome Met (O.20) Yes Last Modified By: Rosanne Anderson RN 05/20/20 11:53:42 Post-Care Text: E.50 Evaluates results of the surgical count O.20 Patient is free from unintended retained foreign objects Patient Care Devices MAGR Pre-Care Text: A.200 Assesses risk for normothermia regulation A.40 Verifies presence of prosthetics or corrective devices Im.280 Implements thermoregulation measures Im.60 Uses supplies and equipment within safe parameters Entry 1 Entry 2 Equipment Type FLOWTRON calf right BLANKET UPPER BODY Serial ?# [id number] Equipment Setting PLACED ON NON OPERATIVE 43 DEGREE c LEG, FACTORY DEFAULT SETTINGS right Last Modified By: Rosanne Anderson RN, Barbara RN 05/20/20 11:24:09 05/20/20 11:24:09 Post-Care Text: E.10 Evaluates signs and symptoms of physical injury to skin and tissue O.700 Patient is free from signs and symptoms of injury caused by extraneous objects Cautery MAGR Pre-Care Text: A.240 Assesses baseline skin condition A.40 Verifies presence of prosthetics or corrective devices Im.50 Implements protective measures to prevent injury due to electrical sources Entry 1 ESU Type Electrosurgical Unit Identification [id number] Number ESU Settings Syntegrity Cut Setting 70 Coag Setting 70 Grounding Pad Details Grounding Pad Yes Grounding Pad Site Table Grounding Pad Needed? Outcome Met (O.10) Yes Last Modified By: Rosanne Anderson RN 05/20/20 11:24:55 Post-Care Text: E.10 Evaluates for signs and symptoms of physical injury to skin and tissue O.10 Patient is free from signs and symptoms of injury related to thermal sources Implant Log MAGR Pre-Care Text: A.20 Verifies operative procedure, surgical site, and laterality Im.350 Records implants inserted during the operative or invasive procedure Entry 1 Entry 2 Entry 3 Procedure Arthroplasty Knee Arthroplasty Knee Arthroplasty Knee Unicompartmental(Left ) Unicompartmental(Left ) Unicompartmental(Left ) Implant Action Not Implanted Not Implanted Implant Description BIOMET 42 5299 003 012 [id number] STABLECUT BIOMET 42 5380 007 01 ART SURFACE MOSAIC TILE MAKER BLADE PERSONA PARTIAL TIBIAL TIOP Implant Information Implant/Explant 05/20/20 11:48:00 Date/Time Implanted/Explanted Vitaliy Montenegro By: Alberto CHOI Size SIZE G LEFT MEDIAL Dual Rate Supervisor BIOMET BIOMET BIOMET Catalog # 42 5299 003 01 [id number] 42 5380 007 01 Lot Number [id number] Expiration Date 08/17/23 12/07/22 07/17/28 Serial Number Device Identifier Human Readable ALEX Machine Readable ALEX MR Class Implant Usage Data Site Knee L Knee L Knee L Quantity 1 1 1 Reason for Explant Reason Not Retained Explant Disposition Commercial Helicopter Pilot Sterility External Indicator Result Internal Indicator Results Outcome Met (O.30) Yes Yes Yes Last Modified By: Rosanne Anderson RN, Barbara RN Long, Barbara RN 05/20/20 12:01:42 05/20/20 11:31:21 05/20/20 11:59:34 Entry 4 Entry 5 Entry 6 Procedure Arthroplasty Knee Arthroplasty Knee Arthroplasty Knee Unicompartmental(Left ) Unicompartmental(Left ) Unicompartmental(Left ) Implant Action Implant Implant Implant Description BIOMET 42 5182 007 08 BIOMET 42 5580 005 01 BIOMET [id number] BONE PARTIAL ART SURFACE PARTIAL FEMUR CEMENT Implant Information Implant/Explant 05/20/20 11:48:00 05/20/20 11:48:00 05/20/20 11:50:00 Date/Time Implanted/Explanted Vitaliy Montenegro James Huddleston, James By: Alberto DO Alberto DO Alberto DO Size SIZE G LEFT MEDIAL 8MM SIZE 5 LFT MEDIAL THICKNESS Dual Rate Supervisor BIOMET BIOMET BIOMET Catalog # 42 5182 007 08 42 5580 005 01 [id number] Lot Number [id number] Expiration Date 08/17/23 05/19/28 06/16/24 Serial Number Device Identifier Human Readable ALEX Machine Readable ALEX MR Class Implant Usage Data Site Knee L Knee L Knee L Quantity 1 1 1 Reason for Explant Reason Not Retained Explant Disposition Commercial Helicopter Pilot Sterility External Indicator Result Internal Indicator Results Outcome Met (O.30) Yes Yes Yes Last Modified By: Rosanne Anderson RN, Barbara RN Long, Barbara RN 05/20/20 11:59:34 05/20/20 11:59:34 05/20/20 12:04:01 Post-Care Text: E.30 Evaluates verification process for correct patient, site, side and level surgery O.30 Patient's procedure is performed on the correct site, side, and level Dressing/Packing MAGR Pre-Care Text: A.350 Assesses susceptibility for infection Im.290 Administer care to wound sites Entry 1 Skin Prep Agent Yes Site Knee Removed Prior to Dressing? Site Details Left Dressing Item Details Dressing Item 4x4's, ABD Tape (Im.290) Elastic Sports Bandage (Im.290) Outcome Met Yes Last Modified By: Rosanne Anderson RN 05/20/20 11:31:43 Post-Care Text: E.200 Evaluates progress of wound healing O.200 Patient's wound perfusion is consistent with or improved from baseline levels Departure from OR MAGR Entry 1 Present on Depart Oxygen Via Bed Post-op Destination PACU Skin DFO Condition Dry Description Condition Intact Description Report Given To Shantel Titus RN Airway Maintenance Patient Status Stable Oxygen in Use? Yes Airway Device Simple mask Flow Rate 15 L/min Last Modified By: Rosanne Anderson RN 05/20/20 11:36:39 Case Comments Finalized By: Rosanne Anderson RN Document Signatures Signed By: Rosanne Anderson RN 05/20/20 12:17 [facility] MAGR Intraoperative Record MAGR Intra-Op Record Summary Primary Physician: Finalized Date/Time: 05/20/20 09:04:45 Pt. Name: CHRIS MORLEY./Sex: 1970 MALE Med Rec #: [id number] Physician: Vitaliy Montenegro DO Financial #: [id number] Pt. Type: I Room/Bed: Admit/Disch: 05/20/20 06:48:00 - Institution: Case Times MAGR Entry 1 Patient In Room Time 05/20/20 08:19:00 Out Room Time 05/20/20 09:04:00 Anesthesia Start Time 05/20/20 08:22:00 Stop Time 05/20/20 08:29:00 Surgery Start Time 05/20/20 08:25:00 Stop Time 05/20/20 08:29:00 Last Modified By: Nasrin Bains RN 05/20/20 09:04:13 General Comments: Patient awaiting in room pre-op. Patient awake and talking/ alert and oriented x3- patient remains in room with siderails up x2. Instructed pt not to get up by himself- pt understood. Call light in reach. Case Attendance MAGR Entry 1 Entry 2 Entry 3 Case Attendee Amadeo Quintana MD, RN, Nasrin Wild RN Role Performed Anesthesia Care Provider Appeals Officer Appeals Officer Time In 05/20/20 08:19:00 05/20/20 08:19:00 05/20/20 08:19:00 Time Out 05/20/20 08:31:00 05/20/20 08:35:00 05/20/20 09:04:00 Procedure Adductor Canal Adductor Canal Adductor Canal Block(Left) Block(Left) Block(Left) Last Modified By: Nasrin Bains RN, Lora RN Draper, Lora RN 05/20/20 09:04:08 05/20/20 09:04:08 05/20/20 09:04:21 Surgical Procedures MAGR Pre-Care Text: A.20 Verifies operative procedure, surgical site, and laterality Im.150 Develops individualized plan of care Entry 1 Procedure Adductor Canal Block Primary Procedure Yes Primary Surgeon Amadeo Quintana MD Modifiers Left Surgeon Comment ADDUCTOR CANAL BLOCK Start 05/20/20 08:25:00 PRIOR TO LEFT UNI VS LEFT TOTAL KNEE Stop 05/20/20 08:29:00 Anesthesia Type Regional Block Surgical Service Anesthesia Wound Class Clean Technique Details Closure Technique N/A Entire procedure No was performed via laparoscope or robotic assistance Last Modified By: Nasrin Bains RN 05/20/20 09:04:36 Post-Care Text: O.730 The patient's care is consistent with the individualized perioperative plan of care General Case Data MAGR Pre-Care Text: A.350.1 Classifies surgical wound Entry 1 Case Information OR MAGR Proc Room Case Level None Wound Class Clean Specialty Anesthesia ASA Class 2 Diagnosis Preop Diagnosis ADDUCTOR CANAL BLOCK Postop Same As Preop Yes PRIOR TO LEFT UNI VS LEFT TOTAL KNEE Postop Diagnosis ADDUCTOR CANAL BLOCK PRIOR TO LEFT UNI VS LEFT TOTAL KNEE Blunt or No Is the procedure No penetrating injury considered occured prior to Emergent/Urgent? the start of the procedure: Last Modified By: Nasrin Bains RN 05/20/20 08:25:03 Post-Care Text: O.760 Patient receives consistent and comparable care regardless of the setting Time Out MAGR Entry 1 Time out date/time 05/20/20 08:20:00 All team members Yes have introduced themselves by name and role Surgeon, Yes Surgeon reviews Yes anesthesia, nurse critical or confirm patient, unexpected steps, site, procedure operative duration, anticipated blood loss Anesthesia team Yes Nursing team Yes reviews any reviews sterility patient-specific (including concerns indicator results) and equipment issues/concerns Antibiotic Antibiotic N/A prophylaxis given within the last 60 minutes Is essential Yes imaging displayed? Last Modified By: Nasrin Bains RN 05/20/20 08:25:26 Patient Positioning MAGR Pre-Care Text: A.280 Identifies baseline musculoskeletal status Im.40 Positions the patient Im.80 Applies safety devices Entry 1 Procedure Adductor Canal Body Position Semi-Fowlers Block(Left) Left Arm Position Resting at Side Right Arm Position Resting at Side Left Leg Position Elevated Right Leg Position Extended Feet Uncrossed? Yes Press Points Checked Yes Positioning Device Pillow Outcome Met (O.80) Yes Last Modified By: Nasrin Bains RN 05/20/20 08:26:31 Post-Care Text: E.290 Evaluates musculoskeletal status O.80 Patient is free from signs and symptoms of injury related to positioning Skin Prep MAGR Pre-Care Text: A.30 Verifies allergies Im.270 Performs skin preparation Im.270.1 Implements protective measures to prevent skin and tissue injury due to chemical sources Entry 1 Skin Prep Syntegrity Prep Agents (Im.270) Chlorhexidine Gluconate Prep By Amadeo Quintana MD and Alcohol Prep Area (Im.270) Thigh Skin Prep Agent Dry Yes Without Pooling Hair Removal Syntegrity Hair Removal Methods No hair removal performed Outcome Met (O.100) Yes Last Modified By: Nasrin Bains RN 05/20/20 08:27:06 Post-Care Text: E.10 Evaluates for signs and symptoms of physical injury to skin and tissue O.100 Patient is free from signs and symptoms of chemical injury Departure from OR MAGR Entry 1 Present on Depart N/A Via Stretcher Post-op Destination [place] Skin DFO Condition Warm Description Condition Dry Description Report Given To Rosanne Anderson RN Airway Maintenance Patient Status Stable Oxygen in Use? No Last Modified By: Nasrin Bains RN 05/20/20 08:59:37 General Comments: Patient awaiting in room prior to surgery- Patient awake and talking/ alert and oriented x3- patient remains in room with siderails up x2. Instructed pt not to get up by himself- pt understood. Call light in reach. Case Comments Finalized By: Nasrin Bains RN Document Signatures Signed By: Nasrin Bains RN 05/20/20 09:04 [facility] PACU Record [facility] PACU Record Summary Primary Physician: Vitaliy Montenegro DO Finalized Date/Time: 05/20/20 13:06:24 Pt. Name: CHRIS MORLEY/Sex: 1970 MALE Med Rec #: [id number] Physician: Vitaliy Montenegro DO Financial #: [id number] Pt. Type: I Room/Bed: Admit/Disch: 05/20/20 06:48:00 - Institution: PACU Case Times MAGR Entry 1 In PACU I 05/20/20 12:17:00 Discharge from PACU 05/20/20 12:55:00 I Last Modified By: Shantel Titus RN 05/20/20 13:06:19 General Comments: Pt awake, A&O x4, VS stable. Transferred to room 202. Finalized By: Shantel Titus RN Document Signatures Signed By: Shantel Titus RN 05/20/20 13:06 [facility] MAGR Preoperative Recordon 0 05-20-2020 MAGR Preoperative Record MAGR Pre-Op Record Summary Primary Physician: Vitaliy Montenegro DO Finalized Date/Time: 05/20/20 11:09:22 Pt. Name: SALMA CHRIS Jolene Johnson/Sex: 1970 MALE Med Rec #: [id number] Physician: Vitaliy Montenegro DO Financial #: [id number] Pt. Type: I Room/Bed: 202/ Admit/Disch: 05/20/20 06:48:00 - Institution: Pre-Op Case Times MAGR Pre-Care Text: Patient will be optimally prepared for surgery. Patient is free from s/s of injury. Provide information to patient/family related to plan of care. Verify patient allergies. Confirm identity and verify consent before the operative or invasive procedure. Entry 1 Patient Arrival Time 05/20/20 07:08:00 Preop Departure 05/20/20 10:23:00 Last Modified By: Rosanne Anderson RN 05/20/20 11:09:19 Post-Care Text: Patient is prepared mentally and physically and is ready for surgery. The patient remains free from s/s of injury. Patient/family express understanding of plan of care and participate in decisions affecting his or her perioperrative plan of care. Allergies documented appropriately. Patient identifiers and consent correct. General Comments: Pt arrives per amb. Patient deneis any recent cold/flu symtpoms, SOB, sleep apnea, diabetes, CP, or pacemaker/defibrillat or. Finalized By: Rosanne Anderson RN Document Signatures Signed By: Rosanne Anderson RN 05/20/20 11:08 Rosanne Anderson RN 05/20/20 11:09 Unfinalized History Date/Time Username Reason for Unfinalizing Freetext Reason for Unfinalizing 05/20/20 11:09 [email or web address] Modify Pick List Normal [facility] Nutrition Noteon 05-20-2020 Nutrition Note Pt admitted for scheduled knee surgery; diet advanced from NPO to Regular with usual post op vitamins/minerals and oral supplements. No wt hx available. No pre-op labs noted. Per pre-op medical notes, however, Pt was having elevated BP which appears resolved. Will monitor need to add 2g Na restriction to diet. Pt at low nutrition risk at this time. To follow. Normal [facility] Operative Report - Surgeon/P penny 05-20-2020 Operative Report - Surgeon/Physician Preoperative diagnosis: Primary osteoarthritis left knee Postoperative diagnosis: Same Procedure: Left partial knee replacement we will compartment using mason persona knee metal on poly on metal Implants; 5 femur G tibia 8mm poly Surgeon: Dion Montenegro D.O. Anesthesia: General Indications for surgery: Progression of pain with failure of conservative treatment radiographic findings revealing [id number]-[id number] in the medial compartment Estimated blood loss: 50 cc Complications: There were no complications Findings: Exposed bone in the medial compartment but an intact patellofemoral joint and lateral compartment Procedure summary: Patient was brought to the operative suite he was given general anesthesia and then the left knee was prepped and draped in usual fashion. A timeout was taken. A standard anterior medial parapatellar approach was utilized. Incision was made and upon opening the capsule I inspected the knee. I noted the arthritis contained to the medial compartment and the patellofemoral joint and lateral compartment intact. The cruciates were intact. I proceeded to expose the medial compartment. I attached anterior extra medullary cutting guide to the tibia and I made my cut perpendicular and my sagittal cut just off the lateral edge of the intracruciate ligament. The bone was removed. Next a spacer block was inserted and the cut appeared to be perpendicular. The 10 mm block fit best. Utilizing spacer block guide with the knee in slight flexion at the distal femoral cutting guide was pinned in place. The distal femoral cut was taken and the knee was placed in flexion the femur sized out to a 5 aligning the posterior cut of the femur parallel to the tibia the cutting block for the chamfer and posterior cut was pinned in place the posterior cut was taken followed by the chamfer cut and the peg holes were drilled. The cutting guide was removed. The tibia sized out to a G and the femur sized out to a 5 trial components were inserted the knee was taken through range of motion and 8 mm spacer produced the best balance both in flexion and extension. The tibia was prepared with a peg drill and then all trial components were removed the bone was washed with pulse lavage meanwhile the cement was mixed on the back table I infiltrated the posterior capsule as well as the synovium around the knee and the fascial planes around the knee with a total of 20 cc of Exparel. The bone was washed and dried again and the cement was immediately applied to the prosthesis once the mixing was completed. The tibial component was cemented in place followed by cementation of the femoral component and an 8 mm polyethylene spacer was clicked into place the knee was then placed in terminal extension with compression across the joint until the cement was completely hardened. The knee was taken through range of motion all excess cement was trimmed away from the knee the knee was washed with pulse lavage the capsule was closed with a #2 Ethibond suture in the superior corner and then interrupted 0 Vicryl throughout the subcutaneous layers were closed with 0 Vicryl and then skin clips were applied superficially. Bacitracin Adaptic and sterile dressings were applied. [Electronically Signed on: 05/20/2020 13:40 EST] Vitaliy Montenegro DO [Verified on: 05/20/2020 13:40 EST] Vitaliy Montenegro DO [facility] Patient Handouton 05-20-2020 Patient Handout Knee Rehabilitation in the Home After knee surgery, it is important to follow instructions from your health care provider about rehabilitation (rehab). It is important to design a program that is safe and effective for you. Your health care provider and rehabilitation therapist will work with you to meet your specific abilities and needs. What are the benefits? Knee rehab can help to: ? Strengthen your knee. ? Improve the flexibility and movement (range of motion) of your knee joint. ? Reduce swelling. ? Improve blood flow and prevent blood clots. How to do exercises at home ? Continue exercises at home that your health care provider or physical therapist instructed you to do in the hospital. ? Before you exercise: ? Take pain medicines, if told by your health care provider. Do not take the medicine if it makes you feel dizzy or sleepy. ? Do a warm-up activity, such as gentle walking or riding a stationary bike, as told by your health care provider. Doing that warms up your muscles and helps to prevent injury. ? While doing exercises: ? When standing, make sure you are near something sturdy that you can hold onto for balance, such as a heavy chair or the wall. ? Do exercises exactly as told by your health care provider and adjust them as directed. ? As you are recovering, choose an exercise pace that is comfortable for you, and gradually work up to your goal. ? Do not force your knee to bend. ? Do not exercise in a pool (aquatic therapy) until your incision is healed and your health care provider says that you can. Follow these instructions at home: Activity ? Do not use your knee to support (bear) your body weight until your health care provider says that you can. Follow weight-bearing restrictions as told. Use crutches or a walker as told by your health care provider. ? Do not twist or kneel on your injured knee. ? Ask your health care provider what activities are safe for you during recovery, and ask what activities you need to avoid. ? Avoid sitting for a long time without moving. Get up to take short walks every 1?2 hours. Ask for help if you feel weak or unsteady. Managing pain, stiffness, and swelling ? Put ice on affected areas after you exercise, or as needed. Icing can help to relieve joint pain and swelling. ? Put ice in a plastic bag or use the icing device (cold flow pad or cold therapy unit) that you were given. Follow instructions from your health care provider about how to use the icing device. ? Place a towel between your skin and the bag or device. ? Leave the ice on for 20 minutes, 2?3 times a day. ? If directed, apply heat to affected areas before you exercise, or as needed. Heat can reduce the stiffness of your muscles and joints. Use the heat source that your health care provider recommends, such as a moist heat pack or a heating pad. ? Place a towel between your skin and the heat source. ? Leave the heat on for 20?30 minutes. ? Remove the heat if your skin turns bright red. This is especially important if you are unable to feel pain, heat, or cold. You may have a greater risk of getting burned. ? Wear compression stockings as told by your health care provider. These stockings help to prevent blood clots and reduce swelling in your legs. ? Raise (elevate) your legs while sitting or lying down. Do not place your knee on top of pillows to elevate it. Keep your legs straight to prevent your knee from getting stuck in a bent position (contracture). Preventing falls ? Keep your home well-lit and clutter-free, especially in walkways and stairways. Keep floors dry and use non-skid mats. ? Remove tripping hazards from floors, such as throw rugs and cords. ? Install grab bars in bathrooms, and put night-lights in your bedroom and bathroom. ? Wear closed-toe shoes that fit well and support your feet. Wear shoes that have rubber soles or low heels. ? Talk with your health care provider about the dran-hri-vjrlvny and prescription medicines that you are taking. Some medicines can cause dizziness or changes in blood pressure, which increase your risk of falling. General recommendations ? Teach your family about your condition and how they can participate in your recovery. Include them during a physical therapy session. ? Keep all follow-up visits as told by your health care provider and physical therapist. This is important. Questions to ask your health care provider ? What exercises are safe for me to do? ? How often should I do the exercises? ? How can I manage the pain during exercise? ? What other activities are safe for me to do? Contact a health care provider if: ? You have questions about how to do exercises correctly. ? You have increased difficulty bending your knee. ? You have knee pain that does not go away after you rest and take pain medicines. ? Your prosthesis feels loose. ? You are not able to do exercises. Get help right away if: ? You fall. ? Your incision from surgery breaks open. Summary ? Knee rehab can help to strengthen your knee and improve the flexibility and movement (range of motion) of your knee joint. ? Continue exercises at home that your health care provider or physical therapist instructed you to do in the hospital. ? Call your health care provider if you have questions about how to do exercises correctly. This information is not intended to replace advice given to you by your health care provider. Make sure you discuss any questions you have with your health care provider. Document Released: 04/05/2006 Document Revised: 03/18/2018 Document Reviewed: 02/28/2018 [employer] Patient Education ? 2019 [employer] [facility] UA Pbvxm0ol 05-20-2020 RBC (U) [#/Vol] 0-2 [facility] Comment on above: Order Comment: Urina lysis Microscopic order added on by [employer] Expert Rules system. Performed By: #### 5 [id number], [id number] #### [facility] (DEFAULT) [address] [place] [address] UA Bacteria None [facility] Comment on above: Order Comment: Urina lysis Microscopic order added on by [employer] Expert Rules system. Performed By: #### 5 [id number], [id number] #### [facility] (DEFAULT) [address] [place] [address]67 UA Mucous Trace [facility] Comment on above: Order Comment: Urina lysis Microscopic order added on by [employer] Rules system. Performed By: #### 5 [id number], [id number] #### [facility] (DEFAULT) [address] [place] [address]77 UA Squam Epi Few [facility] Comment on above: Order Comment: Urina lysis Microscopic order added on by [employer] Expert Rules system. Performed By: #### 5 [id number], [id number] #### [facility] (DEFAULT) [address] [place] [address]118 UA WBC 0-2 [facility] Comment on above: Order Comment: Urina lysis Microscopic order added on by [employer] Expert Rules system. Performed By: #### 5 [id number], [id number] #### [facility] (DEFAULT) [address] [place] [address]7817 UA w Culture if Ind Standard on 05-20-2020 Breakpoint UA Normal [facility] Comment on above: Order Comment: ua cu lt if indicated urine at sotelo insertion time Performed By: #### 5 [id number], [id number] ####[facility] (DEFAULT)[address] [place] [address] Color (U) Yellow Normal [facility] Comment on above: Order Comment: ua cu lt if indicated urine at sotelo insertion time Performed By: #### 5 [id number], [id number] ####[facility] (DEFAULT)[address] [place] [address] Culture? Not Indicated [facility] Comment on above: Order Comment: ua cu lt if indicated urine at sotelo insertion time Performed By: #### 5 [id number], [id number] ####[facility] (DEFAULT)[address] [place] [address] Glucose (U) [Mass/Vol] Negative [facility] Comment on above: Order Comment: ua cu lt if indicated urine at sotelo insertion time Performed By: #### 5 [id number], [id number] ####[facility] (DEFAULT)[address] [place] [address] 28652 Ketones Ql (U) Negative [facility] Comment on above: Order Comment: ua cu lt if indicated urine at sotelo insertion time Performed By: #### 5 [id number], [id number] ####[facility] (DEFAULT)[address] [place] [address]6628 Micro? Indicated [facility] Comment on above: Order Comment: ua cu lt if indicated urine at sotelo insertion time Performed By: #### 5 [id number], [id number] ####[facility] (DEFAULT)[address] [place] [address] 52954 UA Bilirubin Negative Normal [facility] Comment on above: Order Comment: ua cu lt if indicated urine at sotelo insertion time Performed By: #### 5 [id number], [id number] ####[facility] (DEFAULT)[address] [place] [address] 35930 UA Blood TRACE Abnormal NEGATIVE [facility] Comment on above: Order Comment: ua cu lt if indicated urine at sotelo insertion time Performed By: #### 5 [id number], [id number] ####[facility] (DEFAULT)[address] [place] [address] UA Clarity CLEAR Normal CLEAR [facility] Comment on above: Order Comment: ua cu lt if indicated urine at sotelo insertion time Performed By: #### 5 [id number], [id number] ####[facility] (DEFAULT)[address] [place] [address] UA Leuk Est Negative Normal NEGATIVE [facility] Comment on above: Order Comment: ua cu lt if indicated urine at sotelo insertion time Performed By: #### 5 [id number], [id number] ####[facility] (DEFAULT)[address] [place] [address] UA Nitrite Negative Normal NEGATIVE [facility] Comment on above: Order Comment: ua cu lt if indicated urine at sotelo insertion time Performed By: #### 5 [id number], [id number] ####[facility] (DEFAULT)[address] [place] [address] UA pH 5.5 Normal 5-8 [facility] Comment on above: Order Comment: ua cu lt if indicated urine at sotelo insertion time Performed By: #### 5 [id number], [id number] ####[facility] (DEFAULT)[address] [place] [address] UA Protein Negative Normal NEGATIVE [facility] Comment on above: Order Comment: ua cu lt if indicated urine at sotelo insertion time Performed By: #### 5 [id number], [id number] ####[facility] (DEFAULT)[address] [place] [address] UA Spec Grav <=1.005 Normal 1.001-1.035 [facility] Comment on above: Order Comment: ua cu lt if indicated urine at sotelo insertion time Performed By: #### 5 [id number], [id number] ####[facility] (DEFAULT)[address] [place] [address] UA Urobilinogen 0.2 mg/dL Normal 0.2-1.0 [facility] Comment on above: Order Comment: ua cu lt if indicated urine at sotelo insertion time Performed By: #### 5 [id number], [id number] ####[facility] (DEFAULT)[address] [place] [address] Urine Source Clean Catch [facility] Comment on above: Order Comment: ua cu lt if indicated urine at sotelo insertion time Performed By: #### 5 [id number], [id number] ####[facility] (DEFAULT)[address] [place] [address] XR Knee One or Two Views [place]ef [place] 05-20-2020 XR Knee One or Two Views Left EXAM: XR Knee One or Two Views Left HISTORY: post op COMPARISON: None. TECHNIQUE: AP and lateral views of the left knee were obtained with portable technique at 1230 hours. FINDINGS: There are prosthetic devices about the distal femur medially and the tibial plateau medially which appear unremarkably positioned. Soft tissue swelling and air primarily anteriorly compatible with recent surgery. Postoperative jeff are noted anteriorly. No definite acute fracture or dislocation is seen. Tiny transversely oriented linear density overlying the lateral compartment on frontal view not definitely seen on lateral view of doubtful acute significance. IMPRESSION: Left knee study demonstrates grossly unremarkable medial left hemiarthroplasty changes as described. Follow-up as needed. Final Dictated by: Zach Salmeron MD Dictated DT/TM: 05/20/20 1:08 Signed (Electronic Signature): Zach Salmeron MD 05/20/20 1:46 pm Technologist: MARIO HAIR [facility] Progress Note - Nurseon 04-20 Progress Note - Nurse Spoke with pt and informed that he needs to be here at 7am and NPO after MN, he verbalizes understanding. [Electronically Signed on: 05/17/2020 09:16 EST] Hannah Jernigan RN [Verified on: 05/17/2020 09:16 EST] Hannah Jernigan RN [facility] Progress Note - Nurseon Progress Note - Nurse JESS chart review for 05/06/2020 surgery reviewed by anesthesiologist, Dr. Rivera- requested that patient's surgeon and PCP be notified of patient's elevated blood pressure at PAT and that patient's surgery has potential to be cancelled if BP remains elevated on day of surgery-no other orders received. Dr. Montenegro' s office called and Aruna notified of info ; Dr. Shorty Parra's office called and Jenny notified of info. [Electronically Signed on: 04/25/2020 14:19 EST] Nasrin Bains RN [Verified on: 04/25/2020 14:19 EST] Nasrin Bains RN [facility] C MRSA Screenon 04-24-2020 C MRSA Screen Negative [facility] Comment on above: Performed By: #### 1 [id number] ####[facility] (DEFAULT)[address] [place] [address] Coding Summaryon 04-24-2020 Coding Summary CODING DATE: 04/24/2020 [facility] STATUS: Home PAYOR: Commercial Insurance APC DESCRIPTION 5733 Level 3 Minor Procedures ADMIT DX: REASON FOR VISIT DX: Z01.818 Encounter for other preprocedural examination FINAL DX: PRINCIPAL: Z01.818 Encounter for other preprocedural examination SECONDARY: M17.12 Unilateral primary osteoarthritis, left knee PYMT PROC APC STAT DESCRIPTION DOCTOR NAME DATE NOTE: The code number assigned matches the documented diagnosis and / or procedure in the patient's chart. However, the narrative phrase printed from the coding software may appear abbreviated, or result in slightly different terminology. Coded By: Tyra Cabrera Date Saved: 04/24/2020 11:28 am [facility] Provider Orderson 04-24-2020 Provider Orders [id number] [facility] UA w Culture if Ind Standard on 04-23-2020 Breakpoint UA [facility] Comment on above: Performed By: #### 1 [id number] ####[facility] (DEFAULT)[address] [place] [address] Color (U) Yellow Normal [facility] Comment on above: Performed By: #### 1 [id number] ####[facility] (DEFAULT)[address] [place] [address] Culture? Not Indicated [facility] Comment on above: Performed By: #### 1 [id number] ####[facility] (DEFAULT)[address] [place] [address] Glucose (U) [Mass/Vol] Negative [facility] Comment on above: Performed By: #### 1 [id number] ####[facility] (DEFAULT)[address] [place] [address] 34721 Ketones Ql (U) Negative [facility] Comment on above: Performed By: #### 1 [id number] ####[facility] (DEFAULT)[address] [place] [address] 25853 Micro? Not Indicated [facility] Comment on above: Performed By: #### 1 [id number] ####[facility] (DEFAULT)[address] [place] [address] 30417 UA Bilirubin Negative Normal [facility] Comment on above: Performed By: #### 1 [id number] ####[facility] (DEFAULT)[address] [place] [address] 65136 UA Blood Negative Normal NEGATIVE [facility] Comment on above: Performed By: #### 1 [id number] ####[facility] (DEFAULT)[address] [place] [address] 36498 UA Clarity CLEAR Normal CLEAR [facility] Comment on above: Performed By: #### 1 [id number] ####[facility] (DEFAULT)[address] [place] [address] 61670 UA Leuk Est Negative Normal NEGATIVE [facility] Comment on above: Performed By: #### 1 [id number] ####[facility] (DEFAULT)[address] [place] [address] 27715 UA Nitrite Negative Normal NEGATIVE [facility] Comment on above: Performed By: #### 1 [id number] ####[facility] (DEFAULT)[address] [place] [address] 99281 UA pH 6.0 Normal 5-8 [facility] Comment on above: Performed By: #### 1 [id number] ####[facility] (DEFAULT)[address] [place] [address] 95682 UA Protein Negative Normal NEGATIVE [facility] Comment on above: Performed By: #### 1 [id number] ####[facility] (DEFAULT)[address] [place] [address] 33714 UA Spec Grav 1.025 Normal 1.001-1.035 [facility] Comment on above: Performed By: #### 1 [id number] ####[facility] (DEFAULT)[address] [place] [address] 83616 UA Urobilinogen 0.2 mg/dL Normal 0.2-1.0 [facility] Comment on above: Performed By: #### 1 [id number] ####[facility] (DEFAULT)[address] [place] [address]2315 Urine Source Clean Catch Normal [facility] Comment on above: Performed By: #### 1 [id number] ####[facility] (DEFAULT)[address] [place] [address]36 Vital Signs Date Time Vital Sign Value Performing Clinician Facility 09-18-2024 15:30-0400 Body height 175.26 cm [facility] 09-18-2024 15:30-0400 Body mass index (BMI) [Ratio] 28.5 kg/m2 [facility] 09-18-2024 15:30-0400 Body weight 87.54 kg [facility] 09-18-2024 15:30-0400 Diastolic blood pressure 89 mm[Hg] [facility] 09-18-2024 15:30-0400 Heart rate 92 /min [facility] 09-18-2024 15:30-0400 Respiratory rate 12 /min [facility] 09-18-2024 15:30-0400 Systolic blood pressure 152 mm[Hg] [facility] 09-17-2023 14:34-0400 Body height 175.26 cm [facility] 09-17-2023 14:34-0400 Body mass index (BMI) [Ratio] 26.2 kg/m2 [facility] 09-17-2023 14:34-0400 Body weight 80.34 kg [facility] 09-17-2023 14:34-0400 Diastolic blood pressure 86 mm[Hg] [facility] 09-17-2023 14:34-0400 Heart rate 81 /min [facility] 09-17-2023 14:34-0400 Respiratory rate 12 /min [facility] 09-17-2023 14:34-0400 Systolic blood pressure 129 mm[Hg] [facility] 03-15-2023 15:30-0500 Body height 175.26 cm Delio Ball Other [facility] [employer] Other 03-15-2023 15:30-0500 Body mass index (BMI) [Ratio] 26.55 kg/m2 Delio Ball Other [employer] [facility] [employer] Other 03-15-2023 15:30-0500 Body weight 81.56 kg Delio Ball Other [employer] [facility] [employer] Other 03-15-2023 15:30-0500 Diastolic blood pressure 86 mm[Hg] Delio Ball Other [employer] [facility] [employer] Other 03-15-2023 15:30-0500 Respiratory rate 12 /min Delio Ball Other [employer] [facility] [employer] Other 03-15-2023 15:30-0500 Systolic blood pressure 134 mm[Hg] Delio Ball Other [employer] Other 02-10-2023 15:30-0400 Body height 175.26 cm Delio Ball Other [employer] Other 02-10-2023 15:30-0400 Body mass index (BMI) [Ratio] 26.4 kg/m2 Delio Ball Other [employer] Other 02-10-2023 15:30-0400 Body weight 81.1 kg Delio Ball Other [employer] Other 02-10-2023 15:30-0400 Diastolic blood pressure 80 mm[Hg] Delio [employer] Other [employer] Other 02-10-2023 15:30-0400 Respiratory rate 12 /min Delio [employer] Other [employer] Other 02-10-2023 15:30-0400 Systolic blood pressure 134 mm[Hg] Delio [employer] Other [employer] Other Encounters Encounter Date Encounter Type Care Provider Facility Start: 09-18-2024 End: 09-18-2024 ambulatory [facility] Work Phone: Start: 09-18-2024 End: 09-18-2024 Encounter for general adult medical examination without abnormal findings [facility] Start: 09-18-2024 End: 09-18-2024 Patient encounter procedure [facility] Work Phone: Start: 05-22-2024 End: 05-22-2024 Hugh Lewis NP Work Phone: [facility] Start: 05-22-2024 End: 05-22-2024 Hugh Lewis PROTOTYPE MACHINE OPERATOR Work Phone: [facility] Start: 05-22-2024 End: 05-22-2024 Office outpatient visit 10 minutes Nena Lewis PROTOTYPE MACHINE OPERATOR Work Phone: [facility] Comment on above: Status post left par tial knee replacement (Primary Dx); Left knee pain, unspecified chronicity Start: 05-22-2024 End: 05-22-2024 ambulatory NENA LEWIS Not Available Start: 09-17-2023 End: 09-17-2023 ambulatory [facility] Work Phone: Start: 09-17-2023 End: 09-17-2023 Encounter for general adult medical examination without abnormal findings [facility] Start: 09-17-2023 End: 09-17-2023 Patient encounter procedure [facility] Work Phone: Start: 06-04-2023 End: 06-04-2023 ambulatory VITALIY MONTENEGRO Not Available Start: 06-03-2023 Chart abstracting Vitaliy jaquez DO Work Phone: [facility] Start: 03-15-2023 End: 03-15-2023 ambulatory Delio Parra Other [employer] Other Start: 03-15-2023 Office outpatient vi sit 15 minutes Delio Parra [facility] Start: 02-10-2023 End: 02-10-2023 ambulatory Delio Parra Other [employer] Other Start: 02-10-2023 Office outpatient vi sit 15 minutes Delio Parra [facility] Start: 01-08-2023 End: 01-09-2023 ambulatory [facility] Start: 09-14-2022 Encounter for genera l adult medical examination without abnormal findings DR DELIO PARRA [facility] Start: 09-12-2022 Telephone encounter Delio Parra [facility] Start: 09-12-2022 End: 09-13-[address] DELIO PARRA Facility:[facility] Start: 09-12-2022 End: 09-13-2022 Encounter for general adult medical examination without abnormal findings DR DELIO PARRA Facility:[facility] Procedures Date Procedure Procedure Detail Performing Clinician Start: 05-22-2024 Radiologic examinati on knee 1/2 views Nena Lewis PROTOTYPE MACHINE OPERATOR Work Phone: Start: 09-12-[address] MARY IN [place] Comment on above: Performed By: #### P [facility] #### [facility] [address] [address] [address] Edward Newell Plan of Treatment Date Care Activity Detail Author Start: 05-24-2025 End: 05-24-2025 Patient encounter procedure 05/24/2025 8:00 AM EST Office Visit [facility] [address] [place] [address] Sushil Goodrich, PA [address] [place] [address] [facility] Start: 05-22-2024 End: 05-22-2024 Patient encounter procedure 05/22/2024 8:00 AM EST Office Visit [facility] [address] [place] [address] Nena Lewis, PROTOTYPE MACHINE OPERATOR [address] [place] [address] Status post left partial knee replacement (Primary Dx) [facility] Comment on above: Status post left par tial knee replacement (Primary Dx) Start: 12-19-2023 Influenza vaccination Influenza Vacc ine (#1) [facility] Start: 06-04-2023 End: 06-04-2023 Patient encounter procedure 06/04/2023 7:15 AM EST Office Visit [facility] [address] [place] [id number] Vitaliy Montenegro DO [address] [place] [address] [facility] Start: 12-18-2022 Influenza vaccination Influenza Vacc ine (#1) [facility] Start: 1969 Screening for malign ant neoplasm of colon [facility] metabo lic 2000 panel - Serum or Plasma [facility] Comprehensive metabo lic 1999 panel - Serum or Plasma [facility] Immunizations Immunization Date Immunization Notes Care Provider Fa ralf 03-21-2021 COVID-19 Vaccine Pfi zer - Documentation Purposes Only Delio Parra Other [facility] 07-23-2020 COVID-19 Vaccine Pfi zer - Documentation Purposes Only Delio Parra Other [facility] 07-01-2020 COVID-19 Vaccine Pfi zer - Documentation Purposes Only Delio Parra Other [facility] Payers Date Payer Category Payer Unknown [id number] 2017 Private Health Insurance [id number] 1970 Unknown [id number] 2.16.84 [id number] 1970 Unknown [id number] 2.16.84 [id number] 1970 Unknown [id number] 2.16.84 [id number] 1970 Unknown [id number] 2.16.84 [id number] 1969 Unknown [id number] 2.16.84 [id number] 1970 Unknown [id number] 2.16.84 [id number] 1970 Unknown [id number] 2.16.84 [id number] 1970 Unknown [id number] 2.16.84 [id number] 1970 Unknown [id number] 2.16.84 [id number] 1959 Unknown [id number] Private Health Insurance [id number] Social History Date Type Detail Facility Start: 10-07-2022 End: 05-22-2024 Sex Assigned At [facility] [employer] Other Start: 09-17-2022 Tobacco smoking status NHIS Never smoked tobacco [facility] Start: 09-17-2022 Tobacco use and exposure Smokeless tobacco non-user [facility] Start: 02-24-2023 End: 05-22-2024 Alcohol intake Lifetime non-drinker (finding) [facility] Start: 10-07-2022 End: 05-22-2024 History of Social function [facility] Start: 1970 Sex Assigned At Not on file [facility] Start: 1970 Sex Assigned At Male F [facility] Tobacco smoking status NJIS Unknown if ever smoked [facility] Work Phone: Start: 09-18-2024 Sex Male (finding) [facility] Evaluation note 09-18-2024 Note Date & Type Note Facility 09-18-2024 Evaluation note Diagnosis Onset Date Resolution Hypercholesterolemia acute September 18, 2024 3:05pm Hypertension acute September 18 3:05pm Lumbar spondylosis acute September 182024 3:05pm Overweight acute September 18, 2024 3:05pm Screening PSA (prostate specific antigen) acute September 18, 2024 3:05pm Tubular adenoma of colon acute September 18, 2024 3:05pm Wellness examination noneactive September 18, 2024 3:05pm [facility] Work Phone: History of Present illness Narrative 05-22-2024 Nena Lewis, TRE - 05/22/2024 8:00 AM EST Note Date & Type Note Facility 05-22-2024 History of Presen t illness Narrative HISTORY OF PRESENT ILLNESS: Chris Morley is an 54 y.o. male. Left Knee: 4 years s/p LT Uni Knee (DOS 05/20/20). Walking well unassisted. States his knee feels like it bends back too much (this is very rare that it happens), notes this rarely happens but has sharp shooting pains when it does. Denies pain otherwise. No pain meds. Admits giving out only when he gets that sensation of bending too far. MEDICATION: Current Outpatient Medications on File Prior to Visit Medication Sig Dispense Refill ascorbic acid (Vitamin C) 1000 MG tablet Take 1,000 mg by mouth in the morning. Glucosamine-Chondroitin 500-400 MG capsule 1 (one) time each day at the same time. [DISCONTINUED] gabapentin (Neurontin) 300 MG capsule Take 300 mg by mouth in the morning and 300 mg in the evening and 300 mg before bedtime. No current facility-administered medications on file prior to visit. MEDICAL HISTORY: Past Medical History: Diagnosis Date Arthritis COVID-19 Hypertension ([facility]) ALLERGIES: No Known Allergies VITALS: Visit Vitals Smoking Status Never PHYSICAL EXAM: Left Knee Exam Tests Drawer: Anterior - normal Posterior - normal Knee Musculoskeletal Exam Inspection Left Erythema: none Effusion: none Edema: none Ecchymosis: none Palpation Left Tenderness: none Range of Motion Left Active extension: 0 Active flexion: 115 Strength Right Extension: 4/5. Flexion: 4/5. Left Extension: 4/5. Flexion: 4/5. Instability Left Varus stress grade: normal Valgus stress grade: normal Anterior drawer: normal Posterior drawer: normal XR knee 1 or 2 views left Imaging Result: AP and lateral of left knee showed surgical position and alignment of prosthetic components without evidence of loosening or wear to the femoral, or tibial componenets. The alignment appeared to be anatomic. There was no evidence of accelerated or asymmetric wear to the tibial tray. There was no evidence of fracture and/or dislocation. Impression: Unremarkable left unicompartmental knee arthroplasty. ASSESSMENT: ICD-10-CM 1. Status post left partial knee replacement Z96.652 2. Left knee pain, unspecified chronicity M25.562 XR knee 1 or 2 views left Follow up in one year with xrays, any issues/concerns follow up sooner. May do activities as tolerated documented in this encounter [facility] Evaluation note 03-15-2023 Note Date & Type Note Facility 03-15-2023 Evaluation note Encounter Date Diagnosis Assessment Notes Feb, Primary hypertension (ICD-10 - I10) This patient is instructed to consume a healthy, low-fat, low-salt diet. They are also encouraged to continue exercise to achieve/maintai n a normal BMI. Weaned off all medications. Continue w/ close monitoring but unlikley requires treatment as long as maintains normal BMI Feb, Overweight (ICD-10 - E66.3) This patient has been instructed on a low-fat, high-fiber diet. They are instructed to reduce calories, portion sizes and snacks. It is recommended that they exercise for 30 minutes, 3-5 times weekly. Feb, Lumbar spondylosis (ICD-10 - M47.816) The patient is instructed to avoid bending, twisting or lifting. They are to use intermittent heat and ice as needed. They may schedule a massage or gentle manipulation. They may safely use Tylenol as needed. [employer] Other Evaluation note 02-10-2023 Note Date & Type Note Facility 02-10-2023 Evaluation note Encounter Date Diagnosis Assessment Notes Jan, Strain of lumbar region, sequela (ICD-10 - S39.012S) The patient is instructed to avoid bending, twisting or lifting. They are to use intermittent heat and ice as needed. They may schedule a massage or gentle manipulation. They may safely use Tylenol as needed. Jan, Bulging of lumbar intervertebral disc (ICD-10 - M51.36) Not surgical candidate. Cautioned w/ lifting, twisting and bending. Pain management if pain intolerable or interferring w/ ADL Jan, Primary hypertension (ICD-10 - I10) This patient is instructed to consume a healthy, low-fat, low-salt diet. They are also encouraged to continue exercise to achieve/maintai n a normal BMI. Improved due to weight loss [employer] Other Progress note 01-08-2023 Note Date & Type Note Facility 01-08-2023 Note ------ Attestation signed by Kimberly Rucker MD at 01/08/2023 12:46 PM I personally saw and examined the patient on the same date of service as resident/fellow Milan Babb. I discussed the findings and therapeutic plan with the resident/fellow Milan Babb. I agree with the documentation, except for any edits/updates below. Teaching Physician's Revisions: Kimberly Rucker ------ Chief Complaint: Lumbar radiculopathy, R groin/back pain HPI When did this problem begin: After lifting a beam at work on 08/18/22. Went to urgent care and XR were negative. [facility] patient. Currently with restrictions of 10lb weight limit. Pain was not present before incident. Timing/frequency of occurrence: Constant Pain description: dull ache > sharp pain Pain severity: 2 > 7 Radicular pain: Present - R lower back/groin Numbness/tingling: No Pain is getting: stable Weakness: No What improves symptoms: Rest What makes symptoms worse: Activity Gait disturbance: No Fine hand dexterity problem: No Previous treatment for this problem: PT for 6 weeks, diclofenac ROS Constitutional: Fatigue: No Weight loss: No Fever: No Chills: No No past surgical history on file. No past medical history on file. No past surgical history on file. No Known Allergies Current Outpatient Medications: amLODIPine (Norvasc) 5 mg tablet, , Disp: , Rfl: ascorbic acid (Vitamin C) 1,000 mg tablet, Take 1,000 mg by mouth in the morning., Disp: , Rfl: carvedilol (Coreg) 25 mg tablet, , Disp: , Rfl: diclofenac (Cataflam) 50 mg tablet, TAKE 1 TABLET IN THE MORNING, 1 IN THE EVENING, AND 1 BEFORE BEDTIME, Disp: , Rfl: Social History Socioeconomic History Marital status: Spouse name: Not on file Number of children: Not on file Years of education: Not on file Highest education level: Not on file Occupational History Not on file Tobacco Use Smoking status: Never Smokeless tobacco: Never Substance and Sexual Activity Alcohol use: Not on file Drug use: Not on file Sexual activity: Not on file Other Topics Concern Not on file Social History Narrative Not on file Social Determinants of Health Financial Resource Strain: Not on file Food Insecurity: Not on file Transportation Needs: Not on file Physical Activity: Not on file Stress: Not on file Social Connections: Not on file Intimate Partner Violence: Not At Risk (01/08/2023) Humiliation, Afraid, Rape, and Kick questionnaire Fear of Current or Ex-Partner: No Emotionally Abused: No Physically Abused: No Sexually Abused: No Housing Stability: Not on file No family history on file. Physical Exam There were no vitals taken for this visit. Musculoskeletal Ortho spine musculoskeletal examination: Tenderness: paraspinal Range of motion lumbar spine: limited Neurological Flexion at the hip strength: 5 Quadriceps strength: 5 Tibialis anterior strength: 5 Plantar flexion strength: 5 Extensor Hallicis Longus strength: 5 Sensory Exam: intact DTR/ Pathologic reflexes Patellar reflex- 2 Gait and station Gait: Normal Images: I, Dr. Kimberly Rucker, personally reviewed the images and my personal interpretation are: MRI from OSH shows disc prolapse significant at L3-4 and L5-S1. Assessment and Plan 52M years presents with R side back/groin pain following work injury on 08/18/22. Pain was not present prior to injury. Work restrictions are no lifting greater than 10lb. Currently taking diclofenac which helps with his pain. Tried PT for 6 weeks which did not help. Explained the clinical and radiological findings with the patient and discussed management options. Recommended gabapentin 100/300 mg TID, discontinue diclofenac due to risk of GI side effects. Follow up in 6 weeks. Milan Babb MD Orthopaedic Surgery PGY-2 [facility] 01/08/23 12:06 PM By using the attestations below, the signing clinician agrees that I have read and verify that the documentation has been personally reviewed by me and ensure that the documentation accurately reflects the encounter. GC: I personally saw this patient on the day of the encounter, performed the boone portion(s) of the service and participated in the management and confirm the resident's documentation. Please note there may be an additional personal documentation from me. [facility] History general Narrative - Reported 09-26-2020 Note Date & Type Note Facility 09-26-2020 History general N arrative - Reported Type Medical History Essential hypertension Medical History Adenoma of colon Medical History Bilateral carpal tunnel syndrome Surgical History Colonoscopy 09/26/2020 Surgical History Open partial replace ment of left knee joint 05/20/2020 Surgical History appendectomy 2009 Hospitalization History see surgical history [facility] [employer] Other Evaluation note Note Date & Type Note Facility Evaluation note No Information [facility] [employer] Other Evaluation note Note Date & Type Note Facility Evaluation note Diagnosis Onset Date Hypertension acute Lumbar spondylosis acute Overweight acute Wellness examination noneact [facility] Work Phone: Evaluation note Note Date & Type Note Facility Evaluation note Diagnosis Status post left partial knee replacement- Primary Left knee pain, unspecified chronicity documented in this encounter [facility] Summary Purpose Family History No Family History Records FoundNo Family History Records FoundNo Family History Records FoundNo Family History Records Found Advance Directives Advance Directive Response Recorded Date/ Time Advance Directives No May 17, 2023 3:13pm Hospital Course Note [facility] Clinical Discharge Summary PERSON INFORMATION Name CHRIS MORLEY Age 50 Years 1970 Sex MALE Language Hungarian PCP Delio Parra Marital Status Med Service Med/Surg Acct# Arrival 05/20/2020 06:48:00 Visit Reason SURGERY - LEFT UNI VS LEFT TOTAL KNEE Acuity LOS 000 24:28 Address: [address] [place] [address] Comment: PROVIDER INFORMATION VITALS INFORMATION Vital Sign Triage Latest Temp Oral 36.9 DegC 37 DegC Temp Temporal 36.9 DegC 36.9 DegC Temp Intravascular Temp Axillary Temp Rectal 02 Sat 98 % 94 % Respiratory Rate 16 br/min 18 br/min Peripheral Pulse Rate 114 bpm 97 bpm Apical Heart Rate Blood Pressure 150 mmHg / 102 mmHg 129 mmHg / 86 mmHg Comment: MEDICAL INFORMATION Allergy Info: No known allergies Medication List: Medications to Continue That Have Not Changed Other Medications aspirin (aspirin 325 mg oral delayed release tablet) 1 tab(s) Oral every day. carvedilol (Coreg 25 mg oral tab (more content not included)... Note Patient: SALMA CHRIS Canchola RN: [id number] Age: 50 years Sex: MALE : 1970 Associated Diagnoses: None Author: Amadeo Quintana MD Postoperative Information Post Operative Note: Post Anesthesia Care Unit. Health Status Allergies: Allergic Reactions (All) No known allergies Physical Examination General: No acute distress. Respiratory: Respirations are non-labored. Review / Management Condition: Stable. Assessment Anesthetic outcome No anesthetic complications noted. Adequate pain relief. No Complaint of nausea and vomiting. Plan Transfer/ Discharge: Patient can be discharged from PACU when criteria met. Condition stable. [Electronically Signed on: 05/20/2020 12:43 EST] Amadeo Quintana MD [Verified on: 05/20/2020 12:43 EST] Amadeo Quintana MD Procedure Findings Note Patient: SALMA CHRIS Canchola RN: [id number] Age: 50 years Sex: MALE : 1970 Associated Diagnoses: None Author: Amadeo Quintana MD Postoperative Information Post Operative Note: Post Anesthesia Care Unit. Health Status Allergies: Allergic Reactions (All) No known allergies Physical Examination General: No acute distress. Respiratory: Respirations are non-labored. Review / Management Condition: Stable. Assessment Anesthetic outcome No anesthetic complications noted. Adequate pain relief. No Complaint of nausea and vomiting. Plan Transfer/ Discharge: Patient can be discharged from PACU when criteria met. Condition stable. [Electronically Signed on: 05/20/2020 12:43 EST] Amadeo Quintana MD [Verified on: 05/20/2020 12:43 EST] Amadeo Quintana MD Chief Complaint and Reason for Visit Chief Complaint Wellness Reason for Visit Hypertension Lumbar spondylosis Overweight Wellness examination Chief Complaint Admit Date Wellness September 18, 2024 3:05p m Reason for Visit Admit Date Hypercholesterolemia September 18, 2024 3:05 pm Hypertension September 18, 2024 3:05p m Lumbar spondylosis September 18, 2024 3:05p m Overweight September 18, 2024 3:05p m Screening PSA (prostate specific antigen ) September 18, 2024 3:05pm Tubular adenoma of colon September 18, 2024 3:05pm Wellness examination September 18, 2024 3:05 pm Additional Source Comments (unrecognized sect ion and content) No Status Records FoundNo Status Records FoundNo Status Records FoundNo Status Records Found INFORMATION SOURCE (unrecogn ized section and content) DATE CREATED AUTHOR 05/25/2020 [facility] DATE CREATED AUTHOR AUTHOR'S ORGANIZ ATION 09/25/2022 [facility] DATE CREATED AUTHOR AUTHOR'S ORGANIZ ATION 01/24/2023 [facility] DATE CREATED AUTHOR AUTHOR'S ORGANIZ ATION 05/28/2024 [facility] EPIC REASON FOR VISIT (unrecogniz ed section and content) Reason Comments Follow-up Care Teams (unrecognized sec tion and content) Tubing Oiler Relationship Specialty Start Date End Date Delio Parra MD [address] [place] [id number] PCP - General Internal Medicine 09/11/22 Team Status: Active Member Role Status Dates Delio Parra DO Primary Care Provider Active Team Status: Inactive Member Role Status Dates Delio Parra DO Primary Care Provide r, Attending Provider Active Start: September 17, 2023 End: September 17, 2023 Tubing Oiler Relationship Specialty Start Date End Date Delio Parra MD [address] [place] [id number] PCP - General Internal Medicine 09/11/22 Tubing Oiler Relationship Specialty Start Date End Date Delio Parra MD [facility] [place] [address] [place] [address] PCP - General Internal Medicine 09/11/22 Team Status: Inactive Member Role Status Dates Delio Parra , DO Primary Care Provide r, Attending Provider Active Start: September 18, 2024 End: September 18, 2024 Goals (unrecognized section and content) Goals may be documented in a n alternate section FOR RECORDS PERTAINING TO PATIENTS WHO ARE OR HAVE BEEN ENROLLED IN A CHEMICAL DEPENDENCY/SUBSTANCEABUSE PROGRAM, SOME INFORMATION MAY BE OMITTED. This clinical summary was aggregated from multiple sources. Caution should be exercised in using it in the provision of clinical care. This summary normalizes information from multiple sources, and as a consequence, information in this document may materially change the coding, format and clinical context of patient data. In addition, data may be omitted in some cases. CLINICAL DECISIONS SHOULD BE BASED ON THE PRIMARY CLINICAL RECORDS. [employer] [facility]. provides no warranty or guarantee of the accuracy or completeness of information in this document.
[2024-09-23 09:41] LABS: Basophils Percent Auto 0.8 % (0.2-2.0); Eosinophils Absolute Auto 0.1 10^3/uL (0.0-0.7); Eosinophils Percent Auto 2.1 % (0.9-7.0); Hematocrit 44.3 % (42.0-54.0); Hemoglobin 15.4 g/dL (14.0-18.0); Immature Granulocytes Abs Auto 0.01 10^3/uL (0.00-0.03); Immature Granulocytes Pct Auto 0.2 % (0.0-0.5); Lymphocytes Absolute Auto 1.8 10^3/uL (1.2-3.8); Lymphocytes Percent Auto 34.6 % (20.5-60.0); Mean Corpuscular HGB Conc 34.8 g/dL (29.9-35.2); Mean Corpuscular Hemoglobin 29.8 pg (25.9-34.0); Mean Corpuscular Volume 85.7 fL (80.0-94.0); Mean Platelet Volume 10.1 fL (9.5-13.5); Monocytes Absolute Auto 0.6 10^3/uL (0.3-0.8); Monocytes Percent Auto 12.1 % (1.7-12.0); Neutrophils Absolute Auto 2.6 10^3/uL (1.4-6.5); Neutrophils Percent Auto 50.2 % (43.0-75.0); Platelet Count 228 10^3/uL (150-450); Red Blood Count 5.17 10^6/uL (4.70-6.10); Red Cell Distribution Width 12.5 % (11.0-15.0); White Blood Count 5.2 10^3/uL (4.0-11.0)
[2024-09-23 10:29] LABS: Alanine Aminotransferase 32 U/L (16-63); Albumin Globulin Ratio 1.2; Alkaline Phosphatase 58 U/L (46-116); Anion Gap 14.2; Aspartate Amino Transferase 26 U/L (15-37); Bilirubin Total 0.5 mg/dL (0.2-1.0); Calcium 9.5 mg/dL (8.5-10.1); Carbon Dioxide 29.6 mmol/L (21.0-32.0); Chloride 102 mmol/L (98-107); Estimated GFR (African America >60 (>=60 mL/min/1.73m^2); Estimated GFR (Non-African Ame >60 (>=60 mL/min/1.73m^2); Globulin 3.4 g/dL; Glucose 97 mg/dL (74-106); Potassium 4.8 mmol/L (3.5-5.1); Sodium 141 mmol/L (136-145); Total Protein 7.4 g/dL (6.4-8.2)
[2024-09-23 11:46] LABS: Chol HDL Ratio 3.1; Cholesterol 202 mg/dL (<=200); HDL Cholesterol 66 mg/dL (40-60); Triglycerides 65 mg/dL (<=150)
== END 2024-09-23 09:23 | disposition home or self-care (01) ==
LOC: LAB 09:23
PROVIDERS: PCP Internal Medicine; Visit Provider Internal Medicine
DX: Z00.00 Encounter for general adult medical examination without abnormal findings (principal); Z12.5 Encounter for screening for malignant neoplasm of prostate
CPT/HCPCS: 36415; 80053; 80061; 85025; G0103

== ENCOUNTER 2024-10-18 14:30 | Outpatient (OUT) | payer OTHER, SELFPAY ==
--- OUTSIDE RECORDS SUMMARY | 2024-10-17 08:34 | XMS_ITS | Continuity of Care Document ---
Author Organization [facility] Address [address] [place] [address] Phone Care Team Providers Care Custom Decorating Consultant Name Role Phone Fidel Delio CHOI Primary Care Provider [phone] Delio Parra DO Attending Provider [phone] Myra Gonzales DO Attending Provider [phone] Care Teams Patient Care Team Team Status: Active Member Role Status Dates Delio Parra DO Primary Care Provider Active Visit Care Team Team Status: Inactive Member Role Status Dates Delio Parra DO Primary Care Provider Active Start: September 18, 2024 End: September 18, 2024 Delio Parra DO Attending Provider Active Sta rt: September 18, 2024 End: September 18, 2024 Patient Care Team Team Status: Active Member Role Status Dates Delio Parra DO Primary Care Provider Active Start: September 23, 2024 Delio Parra DO Attending Provider Active Sta rt: September 23, 2024 Patient Care Team Team Status: Inactive Member Role Status Dates Delio Parra DO Primary Care Provider Active Start: October 17, 2024 End: October 17, 2024 Myra Gonzales DO Attending Provider Active Sta rt: October 17, 2024 End: October 17, 2024 Chief Complaint and Reason for Visit Chief Complaint Admit Date Wellness September 18, 2024 3:05p m EMG BUE per Dr. Shorty Parra October 17, 2024 11:45am Reason for Visit Admit Date Carpal tunnel syndrome on both sides Sebastian 2024 3:05pm Hypercholesterolemia September 18, 2024 3:05 pm Hypertension September 18, 2024 3:05p m Lumbar spondylosis September 18, 2024 3:05p m Overweight September 18, 2024 3:05p m Screening PSA (prostate specific antigen ) September 18, 2024 3:05pm Tubular adenoma of colon September 18, 2024 3:05pm Wellness examination September 18, 2024 3:05 pm Reason for Referral Referring Provider Name Referring Provider Address Referring Provider Phone Referral Date Requested Appointment Date Referral Reason Delio Parra [address] [facility] [address] [facility] [place] [address] Work Phone: September 19, 2024 G56.03 - Carpal tunnel syndrome, bilateral upper limbs September 19, 2024 G56.0 3 - Carpal tunnel syndrome, bilateral upper limbs Allergies, Adverse Reactions, Alerts Allergen Type Severity Reaction Last Updated Verified Status No Known Allergies Allergy Unknown September 18, 2024 3:24pm Yes Active Social History Smoking Status Unknown if ever smoked Observation Status Observation Response Date of Response Legal Sex Male (finding) Sex Assigned At Male [birth year] Problems Active Problems Medical Problem Onset Date Status Comments Screening PSA (prostate spec ific antigen) Unknown Active PSA: 1.33 - 08/2023, 1.5 - 09/2024 Hypercholesterolemia Unknown Active Overweight Unknown Active Tubular adenoma of colon Unknown Active Carpal tunnel syndrome on both sides Unknown Acti ve Hypertension Unknown Active Lumbar spondylosis Unknown Active Medications Medication Status Dose Units Route Directions Qty Days St art Date Stop Date End Date Instructions Adherence Gabapentin 300 mg capsule Discont inued 300 MG PO Daily 90 90 November 01, 2023 12:25p m September 18, 2024 3:29p m Gabapentin 300 mg capsule Discont inued 300 MG PO Three times daily September 17, 2023 12:00a m September 17, 2023 2:34p m Amlodipine 5 mg tablet Discont inued 5 MG PO Daily September 17, 2023 12:00a m September 17, 2023 2:34p m Nabumetone 500 mg tablet Discont inued 1 TAB PO Twice daily September 17, 2023 12:00a m September 17, 2023 2:25p m FreeTextSi tablet Orally Twice a day; Note: Source Status: Not-Takingund efinedPRN; Provider: Fidel Medel Nabumetone 500 mg tablet Discont inued 500 MG PO Twice daily September 17, 2023 2:25pm September 17, 2023 2:34p m Gabapentin 300 mg capsule Discont inued 300 MG PO Daily September 17, 2023 2:34pm November 01, 2023 12:25 pm [place] (No Known Home Meds) Active September 18, 2024 12:00a m Immunizations Immunization Event Date Not Given Reason Dose Number Head Knitting Machine Fixer Lot Number Vaccine Information Statement (VIS) Detail Administration Location COVID-19 mRNA Comirnattaylor (Pfizer) July 01, 2020 COVID-19 mRNA, Comirnaty (Pfizer) July 23, 2020 COVID-19 mRNA, Comirnaty (Pfizer) March 21, 2021 Relevant Diagnostic Tests and/or Laboratory Data Laboratory Results Test Collection Date/Time Result Date/Time Result Interpretation Reference Range Result Comment Performing Site Anion Gap September 23, 2024 9:35am September 23, 2024 9:35am 14.2 Cholester ol/HDL Ratio September 23, 2024 9:35am September 23, 2024 9:35am 3.1 3.3 - 4.4 LOW RISK4.4 - 7.1 AVERAGE RISK7.1 - 11.0 MODERATE RISK>11.0 HIGH RISK Prostate Specific Antigen Screen September 23, 2024 9:35am September 23, 2024 9:35am 1.50 ng/mL <=4.00 Basophils # (Auto) September 23, 2024 9:35am September 23, 2024 9:35am 0.0 10 3/uL 0.0-0.1 Albumin/G lobulin Ratio September 23, 2024 9:35am September 23, 2024 9:35am 1.2 Cholester ol Level September 23, 2024 9:35am September 23, 2024 9:35am 202 mg/dL Above high normal <=200 Basophils (%) (Auto) September 23, 2024 9:35am September 23, 2024 9:35am 0.8 % 0.2-2.0 Albumin September 23, 2024 9:35am September 23, 2024 9:35am 4.0 g/dL 3.4-5.0 HDL Cholester ol September 23, 2024 9:35am September 23, 2024 9:35am 66 mg/dL Above high normal 40-60 > or =60 mg/dl - LOW CARDIOVASCUL AR RISK<40 mg/dl - HIGH CARDIOVASCUL AR RISK Eosinophi ls # (Auto) September 23, 2024 9:35am September 23, 2024 9:35am 0.1 10 3/uL 0.0-0.7 Alkaline Phosphata se September 23, 2024 9:35am September 23, 2024 9:35am 58 U/L 46-116 LDL Cholester ol, Calculate d September 23, 2024 9:35am September 23, 2024 9:35am 123.0 mg/dL <100 mg/dl [id number] 29 mg/dl NEAR OR ABOVE [id number] 59 mg/dl BORDERLINE [id number] mg/dl HIGH>190 mg/dl VERY HIGH Eosinophi ls (%) (Auto) September 23, 2024 9:35am September 23, 2024 9:35am 2.1 % 0.9-7.0 Alanine Aminotran sferase (ALT/SGPT ) September 23, 2024 9:35am September 23, 2024 9:35am 32 U/L 16-63 Triglycer ides Level September 23, 2024 9:35am September 23, 2024 9:35am 65 mg/dL <=150 Hematocri t September 23, 2024 9:35am September 23, 2024 9:35am 44.3 % 42.0-54.0 Aspartate Amino Transf (AST/SGOT ) September 23, 2024 9:35am September 23, 2024 9:35am 26 U/L 15-37 VLDL Cholester ol September 23, 2024 9:35am September 23, 2024 9:35am 13.0 mg/dL Hemoglobi n September 23, 2024 9:35am September 23, 2024 9:35am 15.4 g/dL 14.0-18.0 BUN/Creat inine Ratio September 23, 2024 9:35am September 23, 2024 9:35am 20.0 Immature Granulocy te # (Auto) September 23, 2024 9:35am September 23, 2024 9:35am 0.01 10 3/uL 0.00-0.03 Blood Urea Nitrogen September 23, 2024 9:35am September 23, 2024 9:35am 18.0 mg/dL 7.0-18.0 Immature Granulocy te % (Auto) September 23, 2024 9:35am September 23, 2024 9:35am 0.2 % 0.0-0.5 Calcium Level September 23, 2024 9:35am September 23, 2024 9:35am 9.5 mg/dL 8.5-10.1 Lymphocyt es # (Auto) September 23, 2024 9:35am September 23, 2024 9:35am 1.8 10 3/uL 1.2-3.8 Chloride Level September 23, 2024 9:35am September 23, 2024 9:35am 102 mmol/L 98-107 Lymphocyt es (%) (Auto) September 23, 2024 9:35am September 23, 2024 9:35am 34.6 % 20.5-60.0 Carbon Dioxide Level September 23, 2024 9:35am September 23, 2024 9:35am 29.6 mmol/L 21.0-32.0 Mean Corpuscul ar Hemoglobi n September 23, 2024 9:35am September 23, 2024 9:35am 29.8 pg 25.9-34.0 Creatinin e September 23, 2024 9:35am September 23, 2024 9:35am 0.90 mg/dL 0.70-1.30 Mean Corpuscul ar Hemoglobi n Concent September 23, 2024 9:35am September 23, 2024 9:35am 34.8 g/dL 29.9-35.2 Estimated GFR () September 23, 2024 9:35am September 23, 2024 9:35am >60 >=60 mL/min/1.7 3m 2 Mean Corpuscul ar Volume September 23, 2024 9:35am September 23, 2024 9:35am 85.7 fL 80.0-94.0 Estimated GFR (Non-Afri can Kuwaiti September 23, 2024 9:35am September 23, 2024 9:35am >60 >=60 mL/min/1.7 3m 2 Monocytes # (Auto) September 23, 2024 9:35am September 23, 2024 9:35am 0.6 10 3/uL 0.3-0.8 Globulin September 23, 2024 9:35am September 23, 2024 9:35am 3.4 g/dL Monocytes (%) (Auto) September 23, 2024 9:35am September 23, 2024 9:35am 12.1 % Above high normal 1.7-12.0 Glucose Level September 23, 2024 9:35am September 23, 2024 9:35am 97 mg/dL 74-106 Mean Platelet Volume September 23, 2024 9:35am September 23, 2024 9:35am 10.1 fL 9.5-13.5 Potassium Level September 23, 2024 9:35am September 23, 2024 9:35am 4.8 mmol/L 3.5-5.1 Neutrophi ls # (Auto) September 23, 2024 9:35am September 23, 2024 9:35am 2.6 10 3/uL 1.4-6.5 Sodium Level September 23, 2024 9:35am September 23, 2024 9:35am 141 mmol/L 136-145 Neutrophi ls (%) (Auto) September 23, 2024 9:35am September 23, 2024 9:35am 50.2 % 43.0-75.0 Total Bilirubin September 23, 2024 9:35am September 23, 2024 9:35am 0.5 mg/dL 0.2-1.0 Platelet Count September 23, 2024 9:35am September 23, 2024 9:35am 228 10 3/uL 150-450 Total Protein September 23, 2024 9:35am September 23, 2024 9:35am 7.4 g/dL 6.4-8.2 Red Blood Count September 23, 2024 9:35am September 23, 2024 9:35am 5.17 10 6/uL 4.70-6.10 Red Cell Distribut ion Width September 23, 2024 9:35am September 23, 2024 9:35am 12.5 % 11.0-15.0 Corrected White Blood Count September 23, 2024 9:35am September 23, 2024 9:35am 5.2 10 3/uL 4.0-11.0 Vital Signs Vital Reading Result Reference Range Collection Date/Time Height 69 [in_i] September 18, 2024 3:30pm Weight 87.54 kg September 18, 2024 3:30pm Heart Rate 92 /min 60-100 September 18, 2024 3:30pm Respiratory rate 12 /min 12-September 18, 3:30pm BP Systolic 152 mm[Hg] 100-140 September 18, 2024 3:30pm BP Diastolic 89 mm[Hg] 60-100 September 18, 2024 3:30pm BMI (Body Mass Index) 28.5 kg/m2 September 182024 3:30pm Advance Directives Advance Directive Response Recorded Date/ Time Advance Directives No May 17, 2023 3:13pm Insurance Providers Guarantor Chris Jolene Milli Address [address] [place] [id number] Contact Info. Home Phone: Payer Policy Id Subscriber's Name Subscriber Id Effectiv e Date Expiration Date R [id number] Chris Morley [id number] Encounters Encounter Location(s) Arrival/Admit Date Discharge/Depart Date Provider(s) Departed Physician/Prov ider [facility] September 18, 2024 3:05pm September 18, 2024 4:09pm Delio Parra DO Non-patient / Non-visit -[place] [employer] September 23, 2024 9:35am Delio Parra DO Departed Physician/Prov ider Office Visit -[facility] [place] October 17, 2024 11:45am October 17, 2024 12:34pm Myra Gonzales DO Recent Diagnosis Onset Date Admit Date Carpal tunnel syndrome on both sides Unknown September 18, 2024 3:05pm Hypercholesterolemia Unknown September 18 3:05pm Hypertension Unknown September 18, 2024 3 :05pm Lumbar spondylosis Unknown September 18 3:05pm Overweight Unknown September 18, 2024 3 :05pm Screening PSA (prostate specific antigen) Unknow n September 18, 2024 3:05pm Tubular adenoma of colon Unknown September 3:05pm Wellness examination Unknown September 18 3:05pm Assessments Diagnosis Onset Date Resolution Status Admit Date Carpal tunnel syndrome on halie th sides acute September 18, 2024 3:05pm Hypercholesterolemia acute September 18, 2024 3:05pm Hypertension acute September 18 3:05pm Lumbar spondylosis acute September 182024 3:05pm Overweight acute September 18, 2024 3:05pm Screening PSA (prostate spec ific antigen) acute September 18, 2024 3:05pm Tubular adenoma of colon acute September 18, 2024 3:05pm Wellness examination noneactive September 18, 2024 3:05pm Plan of Treatment Author Delio Parra [facility] Authored September 18, 2024 9:08p m I have instructed this patie nt on a healthy diet and exercise program. I have also reviewed age-appropriate preventive testing recommended. I have instructed this patient to consume a healthy, low-fat, low-salt diet. I have also encouraged them to continue exercise with weight loss to achieve/maintain a BMI < 30. I have instructed this patient on the correct procedure for obtaining home BP measurements: - rest for 5 minutes w/o talking. - positioned w/ feet on floor and arms supported. - average best 2/3 readings w/ goal < 135/85. - update office w/ home readings in 2 weeks. I have instructed this patient to avoid bending, twisting or lifting. I have also instructed on use of intermittent heat and ice as needed. They may schedule a massage or gentle manipulation. I instructed them on the safe use of Tylenol, Lidocaine and stretching exercises. I informed them of alternative modes of treatment for severe pain, which may include referral to physical therapy or pain management. I have instructed this patient on a low-fat, high-fiber diet. I have also instructed them to reduce calories, portions sizes, sweet drinks and snacks. I have also recommended they exercise for 30 minutes, 3-5 times weekly. They are aware of the comorbid conditions associated with excessive weight: Diabetes, HTN, Hyperlipidemia, CAD and arthritis. I have instructed this patient on a low fat, high fiber diet and exercise. I have discussed the primary and secondary prevention benefits attributed to lowering LDL cholesterol. I have also discussed the medical treatment of elevated cholesterol, which is based on the 10 year ASCVD risk. This is an asymptomatic, moderate risk patient with a hx of colon polyp. There has been no change in appetite, weight or bowel habits. There is no history of abdominal pain, heartburn, dysphagia, melena or hematochezia. Due for repeat colonoscopy 2025 I have recommended yearly PSA testing. I have informed him that the PSA can be elevated w/ cancer, infection and enlarged prostates. I have explained to the patient, that If his PSA is elevated, while there are many causes, referral will be recommended to r/o cancer. He would be referred to Urology, who may recommend an MRI, TRUS/bx or possibly continued monitoring. He is agreeable to this plan of action PSA: 1.31 - 08/2022, .33 - 09/2023 Continue to wear wrist splints at night. Refer for EMG/NCS Future Tests Future scheduled test information is unavailable Pending Tests Test Name Ordered Date Scheduled Date Comprehensive Metabolic Panel September 18, 2024 4:0 1pm Future Visits Future appointment information is unavailable Referrals to Other Providers Reason for Referral Referral Start Date Provider Provider Contact Information Provider Address G56.03 - Carpal tunnel syndrome, bilateral upper limbs September 19, 2024 [facility] [address] [place] [address] Future Procedures Procedure Name Ordered Date Scheduled Date PSA Screen (Yearly Only) September 18, 2024 4:01pm Future Medications Future medication information is unavailable Patient Instructions Patient instructions are unavailable
--- OUTSIDE RECORDS SUMMARY | 2024-10-18 14:36 | XMS_ITS | Encounter Summary ---
Author Organization [facility] Address [address] [facility] [place] [address] Care Team Providers Care Mixing And Dispensing Supervisor Name Role Phone Delio Parra DO Primary Care Provider [phone] Encounter Details Date Type Department Care Team (Late st Contact Info) Description 01/30/2023 Abstract [facility] [address] [place] [address] Karissa Lynch, SAP BASIS [address] [place] [address] Social History Tobacco Use Types Packs/Day Years Used Date Smoking Tobacco: Never Smokeless Tobacco: Never Alcohol Use Standard Drinks/Week Comments Never 0 (1 standard drink = 0.6 oz pur e alcohol) Sex and Gender Information Value Date Recorded Sex Assigned at Not on file Legal Sex Male 6:34 PM EDT Gender Identity Not on file Sexual Orientation Not on file COVID-19 Exposure Response Date Recorded In the last 10 days, have yo u been in contact with someone who was confirmed or suspected to have Coronavirus/COVID-19? No / Unsure 01/20/2023 5:20 PM EDT documented as of this encounter Plan of Treatment Upcoming Encounters Date Type Department Care Team (Late st Contact Info) Description 05/24/2025 8:00 AM EST Office Visit [facility] [address] [place] [address] Sushil Goodrich, PA [address] [place] [address] documented as of this encounter Visit Diagnoses Not on filedocumented in this encounter Care Teams Mixing And Dispensing Supervisor Relationship Specialty Start Date End Date Delio Parra DO PCP - General Internal Medicine 09/11/22 documented as of this encounter
--- OUTSIDE RECORDS SUMMARY | 2024-10-18 14:36 | XMS_ITS | Encounter Summary ---
Author Organization [facility] Address [address] [place] [address] Care Team Providers Care Facilities Manager Name Role Phone Delio Parra DO Primary Care Provider [phone] Reason for Visit * Reason Onset Date Comments Med Refill 11/13/2022 Encounter Details Date Type Department Care Team (Late st Contact Info) Description 11/13/2022 Refill [facility] [address] [place] [id number] Ventura George MA Strain of lumbar region, subsequent encounter Social History Tobacco Use Types Packs/Day Years [...] suspected to have Coronavirus/COVID-19? No / Unsure 11/11/2022 10:36 AM EDT documented as of this encounter Miscellaneous Notes * Telephone Encounter - Ventura George MA - 11/13/2022 1:45 PM EDT Contacted pt and informed him atb was sent to the pharmacy, pt states he has future F/U with Dr. Graves at this time. * Telephone Encounter - Karissa Lynch NP - 11/13/2022 1:29 PM EDT Please make pt aware. thanks * Telephone Encounter - Myra Walton LPN - 11/13/2022 11:56 AM EDT Approving, but needs appt for additional refills. * Telephone Encounter - Karissa Lynch NP - 11/13/2022 11:[address] EDT Spoke with Dr Graves. Pt to have refill for diclofenac as below. Please send for him and staff canupdate pt on it being sent. Thanks * Telephone Encounter - Ventura George MA - 11/13/2022 10:59 AM EDT Pt called and stated that his rx were not called into the pharmacy yesterday. Pt was seen by Dr. Graves yesterday. Please review and thank you documented in this encounter Plan of Treatment Upcoming Encounters Date Type Department Care Team (Late st Contact Info) Description 05/24/2025 8:00 AM EST Office Visit [facility] [address] [place] [address] Ssuhil Goodrich PA [address] [facility] [address] [place] [address] documented as of this encounter Visit Diagnoses Diagnosis Strain of lumbar region, subsequent encounter documented in this encounter Care Teams Facilities Manager Relationship Specialty Start Date End Date Delio Parra DO PCP - General Internal Medicine 09/11/22 documented as of this encounter
--- OUTSIDE RECORDS SUMMARY | 2024-10-18 14:37 | XMS_ITS | Clinical Summary ---
Author Organization [facility] Address [address] [place] [address] Care Team Providers Care Screen Printing Machine Operator Name Role Phone Unavailable Primary Care Provider Unavailabl e Allergies No known active allergies Medications amLODIPine (Norvasc) 5 mg tablet 3 Active ascorbic acid (Vitamin C) 1,000 mg tablet Take 1,000 mg by mouth in the morning. Active carvedilol (Coreg) 25 mg tablet 3 Active diclofenac (Cataflam) 50 mg tablet TAKE 1 TABLET IN THE MORNING, 1 IN THE EVENING, AND 1 BEFORE BEDTIME 3 Active gabapentin (Neurontin) 300 mg capsuleIndications :Lumbar radiculopathy Take 1 capsule (300 mg) by mouth in the morning, at noon, and at bedtime. AFTER FINISHING 100MG SCRIPT 90 capsule 3 Active Social History Tobacco Use Types Packs/Day Years Used Date Smoking Tobacco: Never Smokeless Tobacco: Never Tobacco Cessation:Counseling Given: Not Answered Humiliation, Afraid, Rape, and Kick questionnair e Answer Date Recorded Within the last year, have y ou been afraid of your partner or ex-partner? No 01/08/2023 Within the last year, have y ou been humiliated or emotionally abused in other ways by your partner or ex-partner? No Within the last year, have y ou been kicked, hit, slapped, or otherwise physically hurt by your partner or ex-partner? No 01/08/2023 Within the last year, have y ou been raped or forced to have any kind of sexual activity by your partner or ex-partner? No 01/08/2023 PHQ-2 Answer Date Recorded Patient Health Questionnaire-2 Score 0 01/08/2023 [place] [facility] Answer Date Rec orded Within the last year, have y ou been afraid of your partner or ex-partner? No 01/08/2023 Within the last year, have y ou been humiliated or emotionally abused in other ways by your partner or ex-partner? No 01/08/2023 Within the last year, have y ou been kicked, hit, slapped, or otherwise physically hurt by your partner or ex-partner? No 01/08/2023 Within the last year, have y ou been raped or forced to have any kind of sexual activity by your partner or ex-partner? No 01/08/2023 Physically or Sexually Abused Not on file Sex and Gender Information Value Date Recorded Sex Assigned at Not on file Legal Sex Male 2:05 PM EDT Gender Identity Not on file Sexual Orientation Not on file Last Filed Vital Signs Vital Sign Reading Time Taken Comments Blood Pressure - - Pulse - - Temperature - - Respiratory Rate - - Oxygen Saturation - - Inhaled Oxygen Concentration - - Weight 79.4 kg (175 lb) 01/08/2023 11:50 AM EDT Height - - Body Mass Index - - Plan of Treatment Health Maintenance Due Date Last Done Comments CT Colonography 1969 Colonoscopy 1969 Colorectal Cancer Screening 1969 FIT-DNA 1969 FIT 1969 FOBT 1969 Sigmoidoscopy 1969 Depression Screening 1981 Hepatitis B Vaccines (1 of 3 - 19+ 3-dose series) 1988 Adult Tetanus 1991 Zoster Vaccines (1 of 2) 2019 COVID-19 Vaccine (4 - 2023-2 5 season) 2023 03/21/2021, 07/23/2020, 07/01/2020 Influenza Vaccine (#1) 2024 HIB Vaccines Aged Out No longer eligi ble based on patient's age to complete this topic HPV Vaccines Aged Out No longer eligi ble based on patient's age to complete this topic IPV Vaccines Aged Out No longer eligi ble based on patient's age to complete this topic Meningococcal B Vaccine Aged Out No l onger eligible based on patient's age to complete this topic Meningococcal Vaccine Aged Out No sonido ruperto eligible based on patient's age to complete this topic Pneumococcal Vaccine: Pediatrics (0 to 5 Years) and At-Risk Patients (6 to 64 Years) Aged Out No longer eligible b ased on patient's age to complete this topic Rotavirus Vaccines Aged Out No longer eligible based on patient's age to complete this topic Insurance [employer]
--- OUTSIDE RECORDS SUMMARY | 2024-10-18 14:37 | XMS_ITS | Clinical Summary ---
Author Organization [facility] Address [id number] [address] [place] [address] Care Team Providers Care Sheet Metal Worker Supervisor Name Role Phone Delio Parra Lizy CHOI Primary Care Provider [phone] Allergies No known active allergies Medications HYDROcodone-lupillo taminophen (NORCO) 5-325 mg per tablet Take 1 tablet by mouth every 6 (six) hours as needed for pain. Active nabumetone (RELAFEN) 500 mg tablet Take 500 mg by mouth 2 (two) times a day. Active diclofenac sodium 1 % kit Apply topically as needed. Active ascorbic acid, vitamin C, (VITAMIN C) 1000 mg tablet Take 1,000 mg by mouth daily. Active Family History Medical History Relation Name Comments Heart disease Father Stroke Father Arthritis Mother Relation Name Status Comments Father Alive Mother Alive Social History Tobacco Use Types Packs/Day Years Used Date Smoking Tobacco: Never Smokeless Tobacco: Never Alcohol Use Standard Drinks/Week Comments Yes 0 (1 standard drink = 0.6 oz pur e alcohol) rare PHQ-2 Answer Date Recorded Total Score 0 04/18/2020 Childcare Answer Date Recorded Childcare Unknown 02/28/2020 Employment Answer Date Recorded Employment Unknown 02/28/2020 Purpose - Life Answer Date Recorded Purpose and direction in life Unknown Sex and Gender Information Value Date Recorded Sex Assigned at Not on file Legal Sex Male 11:30 AM EST Gender Identity Not on file Sexual Orientation Not on file Last Filed Vital Signs Vital Sign Reading Time Taken Comments Blood Pressure - - Pulse - - Temperature - - Respiratory Rate - - Oxygen Saturation - - Inhaled Oxygen Concentration - - Weight 106.6 kg (235 lb) 04/18/2020 9:13 AM EST Height 172.7 cm (5' 8 ) 04/18/2020 9:13 AM EST Body Mass Index 35.73 04/18/2020 9:13 AM EST Plan of Treatment Health Maintenance Due Date Last Done Comments Depression Screening 1981 Tobacco Screening 1981 Adult BMI Screening 1987 DTaP,Tdap and Td Vaccines (1 - Tdap) 1988 Zoster (Shingles) Vaccine (1 of 2) 2019 Influenza Vaccine 12/18/2024 Medical Devices Not on file Insurance [facility] Care Teams Sheet Metal Worker Supervisor Relationship Specialty Start Date End Date Delio Parra DO [address] [place] [address] PCP - General Internal Medicine 04/18/20
--- OUTSIDE RECORDS SUMMARY | 2024-10-18 14:38 | XMS_ITS | Clinical Summary ---
Author Organization [facility] Address [address] [place] [address] Care Team Providers Care Revolving Inventory Clerk Name Role Phone Delio Parra DO Primary Care Provider [phone] Allergies No known active allergies Medications Glucosamine-Graeme droitin 500-400 MG capsule 1 (one) time each day at the same time. Active ascorbic acid (Vitamin C) 1000 MG tablet Take 1,000 mg by mouth in the morning. Active Active Problems Problem Noted Date Diagnosed Date Primary osteoarthritis of left knee 06/03/2023 Strain of lumbar region 09/19/2022 Family History Medical History Relation Name Comments Heart disease Father Relation Name Status Comments Brother Alive Daughter Alive Father Alive Mother Alive Sister 1 Alive Sister 2 Alive Sister 3 Alive Son Alive Social History Tobacco Use Types Packs/Day Years Used Date Smoking Tobacco: Never Smokeless Tobacco: Never Tobacco Cessation:Counseling Given: Not Answered Alcohol Use Standard Drinks/Week Comments Never 0 (1 standard drink = 0.6 oz pur e alcohol) Sex and Gender Information Value Date Recorded Sex Assigned at Not on file Legal Sex Male 6:34 PM EDT Gender Identity Not on file Sexual Orientation Not on file Last Filed Vital Signs Vital Sign Reading Time Taken Comments Blood Pressure 130/80 02/24/2023 4:07 PM EST Pulse 71 02/24/2023 4:07 PM EST Temperature 36.7 C (98 F) 01/21/2023 12:09 PM EDT Respiratory Rate 18 09/17/2022 3:53 PM EDT Oxygen Saturation 98% 02/24/2023 4:07 PM EST Inhaled Oxygen Concentration - - Weight 77.8 kg (171 lb 9.6 oz) 06/04/2023 7:18 A M EST Height 175.3 cm (5' 9 ) 06/04/2023 7:18 AM EST Body Mass Index 25.34 06/04/2023 7:18 AM EST Plan of Treatment Upcoming Encounters Date Type Department Care Team (Late st Contact Info) Description 05/24/2025 8:00 AM EST Office Visit [facility] [address] [facility] [address] [place] [id number] Sushil Goodrich, PA [address] [facility] [address] [place] [address] Health Maintenance Due Date Last Done Comments CT Colonography 1969 Colonoscopy 1969 Colorectal Cancer Screening 1969 FIT-DNA 1969 FIT 1969 FOBT 1969 Sigmoidoscopy 1969 Influenza Vaccine (Season Ended) 2024 Insurance [employer] [employer] [facility] [place] [facility] [employer] [facility] Care Teams Revolving Inventory Clerk Relationship Specialty Start Date End Date Delio Parra DO PCP - General Internal Medicine 09/11/22
--- OUTSIDE RECORDS SUMMARY | 2024-10-18 14:38 | XMS_ITS | Encounter Summary ---
Author Organization [facility] Address [address] [place] [address] Care Team Providers Care Plastic Eye Technician Name Role Phone Delio Parra DO Primary Care Provider [phone] Encounter Details Date Type Department Care Team (Late st Contact Info) Description 09/25/2022 Abstract [facility] [address] [place] [address] Jenaro Martinez, PT [address] [place] [address] Social History Tobacco Use Types Packs/Day Years [...] suspected to have Coronavirus/COVID-19? No / Unsure 09/28/2022 8:58 AM EDT documented as of this encounter Plan of Treatment Upcoming Encounters Date Type Department Care Team (Late st Contact Info) Description 05/24/2025 8:00 AM EST Office Visit [facility] [address] [place] [phone] Sushil Goodrich, PA [address] [place], [place] [id number] documented as of this encounter Visit Diagnoses Not on filedocumented in this encounter Care Teams Plastic Eye Technician Relationship Specialty Start Date End Date Delio Parra DO PCP - General Internal Medicine 09/11/22 documented as of this encounter
[2024-10-18 15:34] LABS: Thyroid Stimulating Hormone 1.593 uIU/mL (0.358-3.740)
--- OUTSIDE RECORDS SUMMARY | 2024-10-18 19:18 | XMS_ITS | CCD ---
Author Organization [facility] Care Team Providers Care Security Auditor Name Role Phone DR DELIO PARRA Attending Unavailable FIDEL, DR ODELL Consulting Unavailable FIDEL, DR ODELL Primary Care Unavailable FIDEL, DR ODELL Admitting Delio Figueredo Unavailable KIMBERLY RUCKER Referring Unavailable KIMBERLY RUCKER Attending Delio Figueredo MD Primary Care Provider NENA LEWIS Attending Unavailable NENA LEWIS Referring Unavailable VITALIY MONTENEGRO Attending VITALIY Renner Referring Unavailable Delio Parra DO Primary Care Provider Delio Parra DO Attending Provider Myra Gonzales DO Attending Provider Allergies Allergy Classification Reported Allergen(s) Allergy Type Date of Onset Reaction(s) Facility (1 source) patient allergy list reviewed by nurse or physicia Propensity to adverse reactions 3 Comment:Done [facility] Other Medications Current Medications Medication Drug Class(es) [...] before bedtime. 90 tablet 0 11/13/2022 Active [place] (No Known Home Meds) (2 sources) Start: 2024 [place] (No Known Home Meds) Active September 18, 2024 12:00am Completed/Discontinued Medications Medication Drug Class(es) Dates Sig (Normalized) Sig (Original) amLODIPine 5 mg oral tablet (7 sources) Dihydropyridine Calcium Channel He[place] Start: 09-17-2023 [...] August, Not-Taking gabapentin 300 mg oral capsule (14 sources) Anti-epileptic Agent Start: 09-17-2023 End: 09-18-2024 [...] Start: 02-10-2023 take 1 capsule by mo [facility] every eight hours Gabapentin 300 MG 1 capsule Orally tid Jan, Active nabumetone 500 mg oral tablet (9 sources) Nonsteroidal Anti-inflammatory Drug Start: 09-17-2023 End: [...] Documented Date Episodic/Chronic Disorders of lipid metabolism (4 sources) Hypercholesterolemia; Translations: [Pure hypercholesterolemia, unspecified] 09-16-2024 Chronic Essential hypertension (14 sources) Essential hypertension; Translations: [Essential (primary) hypertension] [...] unspecified] Episodic Other and unspecified benign neoplasm (3 sources) Tubular adenoma of colon; Translations: [Benign neoplasm of colon, unspecified] 09-16-2024 Episodic Other and unspecified benign neoplasm (1 source) Benign neoplasm of colon, unspecified; Translations: [Benign neoplasm of colon] 09-18-2024 Episodic Other connective tissue disease (2 sources) History of prosthetic unicompartmental arthroplasty of left knee; Translations: [Presence of left artificial knee joint] 05-11-2024 Chronic Other nervous system disorders (5 sources) Bilateral carpal tunnel syndrome; Translations: [Carpal tunnel syndrome, bilateral upper limbs] 09-18-2024 Chronic Other nervous system disorders (1 source) Carpal tunnel syndrome Chronic Other non-traumatic joint disorders (2 sources) [...] Episodic Other nutritional; endocrine; and metabolic disorders (4 sources) Overweight; Translations: [Overweight] 09-17-2023 Episodic Other screening for suspected conditions (not mental disorders or infectious disease) (5 sources) Encounter for screening for malignant neoplasm of prostate; Translations: [Patient encounter status] Onset: 09-14-2022 09-16-2024 Episodic Comment on above: PSA: 1.33 - 08/2023, 1.5 - 09/2024 Spondylosis; intervertebral disc disorders; other back problems (9 sources) Other intervertebral disc degeneration, lumbar region; Translations: [Lumbar spondylosis] Chronic Spondylosis; intervertebral disc disorders; other back problems (6 sources) Radiculopathy, lumbar region; Translations: [Intervertebral disc disorders with radiculopathy, lumbar region] Onset: 01-08-2023 Episodic Unclassified (1 source) G56.03 - Carpal tunnel syndrome, bilateral upper limbs Past or Other Problems Problem Classification Problem Date Documented Da te Episodic/Chronic Sprains and strains (7 sources) Strain of muscle, fascia and tendon of lower back, initial encounter; Translations: [Strain of muscle, fascia and tendon of lower back, sequela] Onset: 09-19-2022 Episodic Results Test Name Value Interpretation Reference Range Facility Basophils Auto (Bld) [#/Vol] on 09-23-2024 Basophils (Bld) [#/Vol] 0.0 10 3/uL 0.0-0.1 [facility] Basophils/100 WBC Auto (Bld) on 09-23-2024 Basophils/100 WBC (Bld) 0.8 % 0.2-2.0 [facility] Cholesterol in LDL Calc [Mas s/Vol]on 09-23-2024 Cholesterol in LDL [Mass/Vol] 123.0 mg/dL [facility] Comment on above: <100 mg/dl [id number] 0-129 mg/dl NEAR OR ABOVE [id number] mg/dl BORDERLINE [id number] mg/dl HIGH>190 mg/dl VERY HIGH Cholesterol in VLDL Calc [Ma ss/Vol]on 09-23-2024 Cholesterol in VLDL [Mass/Vol] 13.0 mg/dL [facility] Eosinophils/100 WBC Auto (Bl d)on 09-23-2024 Eosinophils/100 WBC (Bld) 2.1 % 0.9-7.0 [facility] Erythrocyte distribution wid th Auto (RBC) [Ratio]on 09-23-2024 Erythrocyte distribution width (RBC) [Ratio] 12.5 % 11.0-15.0 [facility] Estimated glomerular filtrat ion rate (GFR) non- Americanon 09-23-2024 GFR/1.73 sq M.predicted among non-blacks MDRD (S/P/Bld) [Vol rate/Area] mL/min/{1.73_m2} >=60 mL/min/1.73m 2 [facility] Globulin Calc (S) [Mass/Vol] on 09-23-2024 Globulin (S) [Mass/Vol] 3.4 g/dL [facility] Hematocrit Auto (Bld) [Volum e fraction]on 09-23-2024 Hematocrit (Bld) [Volume fraction] 44.3 % 42.0-54.0 [facility] Hemoglobin [Mass/volume] in Bloodon 09-23-2024 Hemoglobin (Bld) [Mass/Vol] 15.4 g/dL 14.0-18.0 [facility] Laboratory - Chemistry and C hemistry - challengeon 09-23-2024 Albumin [Mass/Vol] 4.0 g/dL 3.4-5.0 [facility] ALP [Catalytic activity/Vol] 58 U/L 46-116 [facility] ALT [Catalytic activity/Vol] 32 U/L 16-63 [facility] AST [Catalytic activity/Vol] 26 U/L 15-37 [facility] Bilirubin [Mass/Vol] 0.5 mg/dL 0.2-1.0 [facility] Calcium [Mass/Vol] 9.5 mg/dL 8.5-10.1 [facility] Chloride [Moles/Vol] 102 mmol/L 98-107 [facility] Cholesterol [Mass/Vol] 202 mg/dL High <=200 [facility] Cholesterol in HDL [Mass/Vol] 66 mg/dL High 40-60 [facility] Comment on above: > or =60 mg/dl - LOW CARDIOVASCULAR RISK<40 mg/dl - HIGH CARDIOVASCULAR RISK CO2 [Moles/Vol] 29.6 mmol/L 21.0-32.0 [facility] Creatinine [Mass/Vol] 0.90 mg/dL 0.70-1.30 [facility] GFR/1.73 sq M.predicted MDRD (S/P/Bld) [Vol rate/Area] mL/min/{1.73_m2} >=60 mL/min/1.73m 2 [facility] Glucose [Mass/Vol] 97 mg/dL 74-106 [facility] Potassium [Moles/Vol] 4.8 mmol/L 3.5-5.1 [facility] Protein [Mass/Vol] 7.4 g/dL 6.4-8.2 [facility] Sodium [Moles/Vol] 141 mmol/L 136-145 [facility] Triglyceride [Mass/Vol] 65 mg/dL <=150 [facility] Urea nitrogen [Mass/Vol] 18.0 mg/dL 7.0-18.0 [facility] Urea nitrogen/Creatinine [Mass ratio] 20.0 mg/mg [facility] Laboratory - Hematology and Cell countson 09-23-2024 Immature granulocytes/100 WBC (Bld) 0.2 % 0.0-0.5 [facility] Leukocytes [#/volume] correc elroy for nucleated erythrocytes in Blood by Automated counon 09-23-2024 WBC corrected for nucl RBC Auto (Bld) [#/Vol] 5.2 10 3/uL 4.0-11.0 [facility] Lymphocytes Auto (Bld) [#/Vo l]on 09-23-2024 Lymphocytes (Bld) [#/Vol] 1.8 10 3/uL 1.2-3.8 [facility] Lymphocytes/100 WBC Auto (Bl d)on 09-23-2024 Lymphocytes/100 WBC (Bld) 34.6 % 20.5-60.0 [facility] MCH Auto (RBC) [Entitic mass ]on 09-23-2024 MCH (RBC) [Entitic mass] 29.8 pg 25.9-34.0 [facility] MCHC Auto (RBC) [Mass/Vol]on 09-23-2024 MCHC (RBC) [Mass/Vol] 34.8 g/dL 29.9-35.2 [facility] MCV Auto (RBC) [Entitic vol] on 09-23-2024 MCV (RBC) [Entitic vol] 85.7 fL 80.0-94.0 [facility] Monocytes Auto (Bld) [#/Vol] on 09-23-2024 Monocytes (Bld) [#/Vol] 0.6 10 3/uL 0.3-0.8 [facility] Monocytes/100 WBC Auto (Bld) on 09-23-2024 Monocytes/100 WBC (Bld) 12.1 % High 1.7-12.0 [facility] Neutrophils Auto (Bld) [#/Vo l]on 09-23-2024 Neutrophils (Bld) [#/Vol] 2.6 10 3/uL 1.4-6.5 [facility] Neutrophils/100 WBC Auto (Bl d)on 09-23-2024 Neutrophils/100 WBC (Bld) 50.2 % 43.0-75.0 [facility] No Panel Informationon 09-23 Eosinophils # (Auto) 0.1 10 3/uL 0.0-0.7 [facility] Immature Granulocyte # (Auto) 0.01 10 3/uL 0.00-0.03 [facility] Prostate Specific Antigen Screen 1.50 ng/mL <=4.00 [facility] Platelet mean volume Auto (B ld) [Entitic vol]on 09-23-2024 Platelet mean volume (Bld) [Entitic vol] 10.1 fL 9.5-13.5 [facility] Platelets Auto (Bld) [#/Vol] on 09-23-2024 Platelets (Bld) [#/Vol] 228 10 3/uL 150-450 [facility] RBC Auto (Bld) [#/Vol]on RBC (Bld) [#/Vol] 5.17 10 6/uL 4.70-6.10 [facility] Serum or plasma albumin/glob ulin mass ratioon 09-23-2024 Albumin/Globulin [Mass ratio] 1.2 {ratio} [facility] Serum or plasma anion gap de terminationon 09-23-2024 Anion gap [Moles/Vol] 14.2 mmol/L [facility] Serum or plasma total choles terol/high density lipoprotein (HDL) cholesterol mass moe 09-23-2024 Cholesterol.total/Ch olesterol in HDL [Mass ratio] 3.1 {ratio} [facility] Comment on above: 3.3 - 4.4 LOW RISK4. 4 - 7.1 AVERAGE RISK7.1 - 11.0 MODERATE RISK>11.0 HIGH RISK XR Knee - left 1 or 2 [...] dislocation. Impression: Unremarkable left unicompartmental knee arthroplasty. [facility] XR Knee - left 1 or 2 ViewsO rdered By: Jr. Brambila on 05-25-2024 [facility] Work Phone: XR Knee - left 1 or 2 Viewso n 05-22-2024 Radiology Study observation (narrative) [facility] 36on 01-21-2023 36 Spoke to patient. He is not diabetic so sent medrol dose pack to pharmacy. [facility] needs a c9 fro follow up visit with us. Transferred to [facility] line to assist. [facility] 36 Patient stated that the gabapentin isnt working to well. Wants to know what else he can do. [facility] 36on 01-08-2023 36 sent [facility] 36 Patient calling in stating gabapentin was supposed to be sent to his pharmacy, but nothing was sent in. Please advise. [facility] Office Visiton 01-08-2023 Follow-up visit [id number] Chris Morley 1970 M [facility] Provider Department Center 01/08/2023 KIMBERLY NGUYỄN MP ORTHO MPORTHO No family history on file Level of Service:63309 LA OFFICE/OUTPATIENT NEW LOW MDM 30-44 MINUTES (GC) Reason for Visit and Comments: New Patient [632] [facility] Telephoneon 01-08-2023 Telephone [id number] Chris Morley 1970 [facility] Provider Department Center 01/08/2023 KIMBERLY NGUYỄN MP ORTHO MPORTHO No family history on file [facility] CBC AUTO DIFFon 09-12-2022 BASO # 0.0 103/ul Normal 0.0-0.1 [facility] Comment on above: Performed By: #### C BC #### [facility] [address] [place] [address] Dr. Edward Newell Basophils/100 WBC (Bld) 0.6 % Normal 0.2-2.0 [facility] Comment on above: Performed By: #### C BC #### [facility] [address] [place] [address] Dr. Edward Newell EO # 0.1 103/ul Normal 0.0-0.7 [facility] Comment on above: Performed By: #### C BC #### [facility] [address] [place] [address] Dr. Edward Newell Eosinophils/100 WBC (Bld) 2.1 % Normal 0.9-7.0 [facility] Comment on above: Performed By: #### C BC #### [facility] [address] [place] [address] Dr. Edward Newell Erythrocyte distribution width (RBC) [Ratio] 13.0 % Normal 11.0-15.0 [facility] Comment on above: Performed By: #### C BC #### [facility] [address] [place] [address] Dr. Edward Newell Hematocrit (Bld) [Volume fraction] 43.4 % Normal 42.0-54.0 [facility] Comment on above: Performed By: #### C BC #### [facility] [address] [place] [address] Dr. Edward Newell Hemoglobin (Bld) [Mass/Vol] 14.5 g/dL Normal 14.0-18.0 [facility] Comment on above: Performed By: #### C BC #### [facility] [address] [place] [address] Dr. Edward Newell IG # 0.01 10e3/ul Normal 0.00-0.03 [facility] Comment on above: Performed By: #### C BC #### [facility] [address] [place] [address] Dr. Edward Newell IG % 0.2 % Normal 0.0-0.5 [facility] Comment on above: Performed By: #### C BC #### [facility] [address] [place] [address] Dr. Edward Newell LYMPH # 1.9 103/ul Normal 1.2-3.8 [facility] Comment on above: Performed By: #### C BC #### [facility] [address] [place] [address] Dr. Edward Newell Lymphocytes/100 WBC (Bld) 37.5 % Normal 20.5-60.0 [facility] Comment on above: Performed By: #### C BC #### [facility] [address] [place] [address] Dr. Edward Newell MANUAL DIFF REQ NO Normal [facility] Comment on above: Performed By: #### C BC #### [facility] [address] [place] [address] Dr. Edward Newell MCH (RBC) [Entitic mass] 29.1 pg Normal 25.9-34.0 [facility] Comment on above: Performed By: #### C BC #### [facility] [address] [place] [address] Dr. Edward Newell MCHC (RBC) [Mass/Vol] 33.4 g/dL Normal 29.9-35.2 [facility] Comment on above: Performed By: #### C BC #### [facility] [address] [place] [address] Dr. Edward Newell MCV (RBC) [Entitic vol] 87.0 fL Normal 80.0-94.0 [facility] Comment on above: Performed By: #### C BC #### [facility] [address] [place] [address] Dr. Edward Newell MONO # 0.6 103/ul Normal 0.3-0.8 [facility] Comment on above: Performed By: #### C BC #### [facility] [address] [place] [address] Dr. Edward Newell Monocytes/100 WBC (Bld) 10.6 % Normal 1.7-12.0 [facility] Comment on above: Performed By: #### C BC #### [facility] [address] [place] [address] Dr. Edward Newell NEUT # 2.5 103/ul Normal 1.4-6.5 [facility] Comment on above: Performed By: #### C BC #### [facility] [address] [place] [address] Dr. Edward Newell Neutrophils/100 WBC (Bld) 49.0 % Normal 43.0-75.0 [facility] Comment on above: Performed By: #### C BC #### [facility] [address] [place] [address] Dr. Edward Newell Platelet mean volume (Bld) [Entitic vol] 10.2 fL Normal 9.5-13.5 [facility] Comment on above: Performed By: #### C BC #### [facility] [address] [address] [address] Edward Newell PLT 197 103/ul Normal 150-450 [facility] Comment on above: Performed By: #### C BC #### [facility] [address] [address] [address] Edward Newell RBC 4.99 106/ul Normal 4.70-6.10 [facility] Comment on above: Performed By: #### C BC #### [facility] [address] [place] [address] Dr. Edward Newell WBC 5.2 103/ul Normal 4.0-11.0 [facility] Comment on above: Performed By: #### C BC #### [facility] [address] [place] [address] Dr. Edward Newell LIPID PROFILEon 09-12-2022 CHOL-HDL RATIO NORM SEE BELOW Normal [facility] Comment on above: Result Comment: 3.3 - 4.4 LOW RISK 4.4 - 7.1 AVERAGE RISK 7.1 - 11.0 MODERATE RISK >11.0 HIGH RISK Performed By: #### L IPID, CMP #### [facility] [address] [place] [address] Dr. Edward Newell Cholesterol [Mass/Vol] 211 mg/dL Critically high <=200 [facility] Comment on above: Performed By: #### L IPID, CMP #### [facility] [address] [place] [address] Dr. Edward Newell Cholesterol in HDL [Mass/Vol] 46 mg/dL Normal 40-60 [facility] Comment on above: Performed By: #### L IPID, CMP #### [facility] [address] [place] [address] Dr. Edward Newell Cholesterol in LDL [Mass/Vol] 142.6 mg/dL Normal [facility] Comment on above: Performed By: #### L IPID, CMP #### [facility] [address] [address] [address] Edward Newell Cholesterol.total/Ch olesterol in HDL [Mass ratio] 4.6 {ratio} Normal [facility] Comment on above: Performed By: #### L IPID, CMP #### [facility] [address] [address] [address] Edward Newell HDL NORMAL > or = 60 mg/dl - LO W CARDIOVASCULAR RISK <40 mg/dl - HIGH CARDIOVASCULAR RISK Normal [facility] Comment on above: Performed By: #### L IPID, CMP #### [facility] [address] [address] [address] Edward Newell LDL CALC NORMAL SEE BELOW Normal [facility] Comment on above: Result Comment: <100 mg/dl OPTIMAL 100 - 129 mg/dl NEAR OR ABOVE OPTIMAL 130 - 159 mg/dl BORDERLINE HIGH 160 - 189 mg/dl HIGH >190 mg/dl VERY HIGH Performed By: #### L IPID, CMP #### [facility] [address] [address] [address] Edward Newell Triglyceride [Mass/Vol] 112 mg/dL Normal <=150 [facility] Comment on above: Performed By: #### L IPID, CMP #### [facility] [address] [address] [address] Edward Newell VLDL CALC 22.4 mg/dL Normal [facility] Comment on above: Performed By: #### L IPID, CMP #### [facility] [address] [place] [address] Dr. Edward Newell PROF 14(COMP METB)on 023 Albumin [Mass/Vol] 4.1 g/dL Normal 3.4-5.0 [facility] Comment on above: Performed By: #### L IPID, CMP #### [facility] [address] [place] [address] Dr. Edward Newell Albumin/Globulin [Mass ratio] 1.2 {ratio} Normal [facility] Comment on above: Performed By: #### L IPID, CMP #### [facility] [address] [place] [address] Dr. Edward Newell ALP [Catalytic activity/Vol] 51 U/L Normal 46-116 [facility] Comment on above: Performed By: #### L IPID, CMP #### [facility] [address] [address] [address] Edward Newell ALT [Catalytic activity/Vol] 45 U/L Normal 16-63 [facility] Comment on above: Performed By: #### L IPID, CMP #### [facility] [address] [address] [address] Edward Newell Anion gap [Moles/Vol] 14.5 mmol/L Normal [facility] Comment on above: Performed By: #### L IPID, CMP #### [facility] [address] [place] [address] Dr. Edward Newell AST [Catalytic activity/Vol] 23 U/L Normal 15-37 [facility] Comment on above: Performed By: #### L IPID, CMP #### [facility] [address] [place] [address] Dr. Edward Newell Bilirubin [Mass/Vol] 0.5 mg/dL Normal 0.2-1.0 [facility] Comment on above: Performed By: #### L IPID, CMP #### [facility] [address] [place] [address] Dr. Edward Newell Calcium [Mass/Vol] 9.1 mg/dL Normal 8.5-10.1 [facility] Comment on above: Performed By: #### L IPID, CMP #### [facility] [address] [place] [address] Dr. Edward Newell Chloride [Moles/Vol] 104 mmol/L Normal 98-107 [facility] Comment on above: Performed By: #### L IPID, CMP #### [facility] [address] [place] [address] Dr. Edward Newell CO2 [Moles/Vol] 27.5 mmol/L Normal 21.0-32.0 [facility] Comment on above: Performed By: #### L IPID, CMP #### [facility] [address] [address] [address] Edward Newell Creatinine [Mass/Vol] 0.80 mg/dL Normal 0.70-1.30 [facility] Comment on above: Performed By: #### L IPID, CMP #### [facility] [address] [place] [address] Dr. Edward Newell EGFR-AF GRENADIAN >60 Normal >=60 [facility] Comment on above: Performed By: #### L IPID, CMP #### [facility] [address] [address] [address] Edward Newell EGFR-NON AF GRENADIAN >60 Normal >=60 [facility] Comment on above: Performed By: #### L IPID, CMP #### [facility] [address] [address] [address] Edward Newell Globulin (S) [Mass/Vol] 3.4 g/dL Normal [facility] Comment on above: Performed By: #### L IPID, CMP #### [facility] [address] [place] [address] Dr. Edward Newell Glucose [Mass/Vol] 102 mg/dL Normal 74-106 [facility] Comment on above: Performed By: #### L IPID, CMP #### [facility] [address] [place] [address] Dr. Edward Newell Potassium [Moles/Vol] 4.0 mmol/L Normal 3.5-5.1 [facility] Comment on above: Performed By: #### L IPID, CMP #### [facility] [address] [place] [address] Dr. Edward Newell Protein [Mass/Vol] 7.5 g/dL Normal 6.4-8.2 [facility] Comment on above: Performed By: #### L IPID, CMP #### [facility] [address] [place] [address] Dr. Edward Newell Sodium [Moles/Vol] 142 mmol/L Normal 136-145 [facility] Comment on above: Performed By: #### L IPID, CMP #### [facility] [address] [place], [place] [id number] Dr. Edward Newell Urea nitrogen [Mass/Vol] 18.0 mg/dL Normal 7.0-18.0 [facility] Comment on above: Performed By: #### L IPID, CMP #### [facility] [address] [id number] [address] Edward Newell Urea nitrogen/Creatinine [Mass ratio] 22.5 mg/mg Normal [facility] Comment on above: Performed By: #### L IPID, CMP #### [facility] [address] [address] [address] 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: Commercial Insurance GROUPERS: 470 MS[employer] JOINT REPLACEMENT OR REATTACHMENT OF LOWER EXTREMITY WITHOUT LONGTERM Low Trim 0 High Trim 999 DIAGNOSES: ADMIT DX: M17.12 Unilateral primary osteoarthritis, left knee REASON FOR VISIT DX: FINAL DX: PRINCIPAL: M17.12 Y Unilateral primary osteoarthritis, left knee SECONDARY: I10 Y Essential (primary) hypertension E66.9 Y Obesity, unspecified Z86.16 1 Personal history of COVID-19 PROCEDURES: DOCTOR NAME DATE Replacement of Left Knee Joint Vitaliy Montenegro And 05/20/2020 with Medial Unicondylar Synthetic Substitute, Cemented, Open Approach NOTE: The code number assigned matches the documented diagnosis and / or procedure in the patient's chart. However, the narrative phrase printed from the coding software may appear abbreviated, or result in slightly different terminology. Coded By: Minal Campbell Date Saved: 05/22/2020 07:00 am [facility] Consent Formson 05-22-2020 Consent Forms [id number] Instructions [id number] [facility] Med[facility] Managementon Medication Management [id number] [facility] Orderson 05-22-2020 Provider Orders [id number] 2 [id number] .[facility] Tele[facility] Strips [id number] .[facility] Consultation/Specialist Note on 05-21-2020 Consultation/Special ist Note Patient: CHRIS MORLEY Age: 50 years [...] [Verified on: 05/21/2020 07:55 EST] NENA LEWIS [facility] Education Noteon 05-21-2020 Education Note Education [...] with your health care provider about the guae-tqd-emmihtu and prescription medicines that you are taking. [...] 04/05/2006 Document Revised: 03/18/2018 Document Reviewed: 02/28/2018 ElseHello Curry Patient Education ? 2019 [employer]. Normal [facility] Inpatient Patient Summaryon 05-21-2020 Inpatient [place] [address] Patient Discharge Instructions Name: CHRIS MORLEY : 1970 Patient Address: [address] [place] [address] Primary Care Provider: Name: Delio Parra After you are discharged if you find you have any questions, please, call [phone] ext [phone] to speak to a nurse. Discharge Diagnosis: [...] alcohol and/or drug addiction problems; contact the [facility] 09/11 Crisis Hotline -Text 4HSZL to 341301. If you received any narcotics, sedation, or [...] business decisions or sign any legal documents [facility] would like to thank you for allowing us to assist you with your healthcare needs. The following includes patient education materials and information regarding your injury/illness. CHRIS MORLEY has been given the following list of follow-up instructions, prescriptions, and patient education materials: Follow-up Instructions With: Address: When: Vitaliy Montenegro [address] [facility] [address] [place], [place] [id number] Business (1) 05/30/2020 1:00 PM With: Address: When: Delio Parra [address] [place] [address] Business (1) Medications During the course of [...] with your health care provider about the pohu-god-jdtvqrf and prescription medicines that you are taking. [...] 04/05/2006 Document Revised: 03/18/2018 Document Reviewed: 02/28/2018 [employer] Patient Education ? 2019 [employer]. Viruses or Bacteria What?s got you sick? 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 [Electronically Signed on: 05/21/2020 09:19 EST] Mili Guevara PharmD [Verified on: 05/21/2020 09:19 EST] Mili Guevara PharmD [facility] Anesthesia Noteon 05-20-2020 Anesthesia Note Patient: CHRIS MORLEY Age: 50 years Sex: MALE : 1970 Associated Diagnoses: None Author: Amadeo Quintana MD Preoperative Information Anesthesia history: Patient history: No difficult intubation, No malignant hyperthermia. Family history: No malignant hyperthermia. Review of Systems Respiratory: No shortness of breath, No apnea. Cardiovascular: No known GA, No chest pain. Gastrointestinal: No heartburn. covid [...] history: Arthroscopy of knee with meniscus repair ([id number]). Comments: 04/23/2020 13:10 Rachel Hankins RN 2009 Appendectomy; ([id number]). Comments: 04/23/2020 13:11 Rachel Hankins RN 1982 [...] ECG interpretation: SR, IRBBB, poss LAE. Plan [employer] [employer] Anesthesiologists#( A) physical status classification: Class II. Anesthetic Preoperative Plan Anesthesia: Regional (Spinal, adductor canal nerve block). Anesthetic plan, risks, benefits, and alternatives discussed with the patient and/or family. Patient verbalized understanding. Informed consent was given. Consent was signed by the patient. [Electronically Signed on: 05/20/2020 08:05 EST] Amadeo Quintana MD [Verified on: 05/20/2020 08:05 EST] Amadeo Quintana MD [facility] History and Physicalon 05-20 History and Physical [id number] .[id number] [facility] MAGR Intraoperative Recordon 05-20-2020 MAGR Intraoperative Record MAGR Intra-Op Record Summary Primary Physician: Vitaliy Montenegro DO Finalized Date/Time: 05/20/20 12:17:52 Pt. Name: SALMA CHRIS Jolene Harris./Sex: 1970 MALE Med Rec #: [id number] Physician: Vitaliy Montenegro DO Financial #: [id number] Pt. Type: I Room/Bed: Admit/Disch: 05/20/20 06:48:00 [...] Role Performed Surgeon - Primary Anesthesiologist of Stockroom Associate Record Time In 05/20/20 10:26:00 05/20/20 10:26:00 05/20/20 10:26:00 Time Out 05/20/20 12:15:00 05/20/20 12:15:00 05/20/20 12:15:00 Procedure Arthroplasty Knee Arthroplasty Knee Arthroplasty Knee Unicompartmental(Left ) Unicompartmental(Left ) Unicompartmental(Left ) Last Modified By: Rosanne Anderson RN, Barbara RN Long, Barbara RN 05/20/20 12:16:50 05/20/20 12:16:50 05/20/20 12:16:50 Entry 4 Entry 5 Entry 6 Case Attendee Catracho Brock PLANNING INTERN Sandro PLANNING INTERN/CSFA, R[address] PLANNING INTERN Gris PLANNING INTERN Role Performed Scrub Personnel Distillery Supervisor Distillery Supervisor Time In 05/20/20 10:26:00 05/20/20 10:26:00 05/20/20 [...] Time 05/20/20 10:45:00 Performed By Catracho Brock PLANNING INTERN Counts Verification Final Counts Items Included in Sponges, Sharps Final Count Method Manual Final Count Final Count Status Correct Final Counts Rosanne Anderson RN, Performed By Catracho Brock PLANNING INTERN Final Count Time 05/20/20 11:53:00 Surgeon notified [...] Implant Description BIOMET 42 5299 003 012 [id number] STABLECUT BIOMET 42 5380 007 01 ART SURFACE SEMICONDUCTOR PROCESSOR BLADE PERSONA PARTIAL TIBIAL TIOP Implant Information Implant/Explant 05/20/20 11:48:00 Date/Time Implanted/Explanted Vitaliy Montenegro By: Alberto CHOI Size SIZE G LEFT MEDIAL Termite Inspector BIOMET BIOMET BIOMET Catalog # 42 5299 003 01 [id number] 42 5380 007 01 Lot Number [id number] Expiration Date 08/17/23 12/07/22 07/17/28 Serial Number Device Identifier Human Readable ALEX Machine Readable ALEX MR Class Implant Usage Data Site Knee L Knee L Knee L Quantity 1 1 1 Reason for Explant Reason Not Retained Explant Disposition 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 Prose Sterility External Indicator Result Internal Indicator Results [...] 08 BIOMET 42 5580 005 01 BIOMET [id number] BONE PARTIAL ART SURFACE PARTIAL FEMUR CEMENT Implant Information Implant/Explant 05/20/20 11:48:00 05/20/20 11:48:00 05/20/20 11:50:00 Date/Time Implanted/Explanted Vitaliy Montenegro, Vitaliy BeachLanVitaliy By: Alberto DO Alberto DO Alberto DO Size SIZE G LEFT MEDIAL 8MM SIZE 5 LFT MEDIAL THICKNESS Termite Inspector BIOMET BIOMET BIOMET Catalog # 42 5182 007 08 42 5580 005 01 [id number] Lot Number [id number] Expiration Date 08/17/23 05/19/28 06/16/24 Serial Number Device Identifier Human Readable ALEX Machine Readable ALEX MR Class Implant Usage Data Site Knee L Knee L Knee L Quantity 1 1 1 Reason for Explant Reason Not Retained Explant Disposition 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 Name: CHRIS MORLEY Jolene MolinaB./Sex: 1970 MALE Med Rec #: [id number] Physician: Vitaliy Montenegro DO Financial #: [id number] Pt. Type: I Room/Bed: [facility] Admit/Disch: 05/20/20 06:48:00 - Institution: Case Times [...] 2 Entry 3 Case Attendee Amadeo Quintana MD RN, Nasrin Wild RN Role Performed Anesthesia Care Provider Stockroom Associate Stockroom Associate Time In 05/20/20 08:19:00 05/20/20 08:19:00 05/20/20 [...] Signed By: Nasrin Bains RN 05/20/20 [facility]04 [facility] PACU Record [facility] PACU Record Summary Primary Physician: Vitaliy Montenegro DO Finalized Date/Time: 05/20/20 13:06:24 Pt. Name: CHRIS MORLEY/Sex: 1970 MALE Med Rec #: [id number] Physician: Vitaliy Montenegro DO Financial #: [id number] Pt. Type: I Room/Bed: Admit/Disch: 05/20/20 06:48:00 - Institution: PACU Case Times MAGR Entry 1 In PACU I 05/20/20 12:17:00 Discharge from PACU 05/20/20 12:55:00 I Last Modified By: Shantel Titus RN 05/20/20 13:06:19 General Comments: Pt awake, A&O x4, VS stable. Transferred to room 202. Finalized By: Shantel Titus RN Document Signatures Signed By: Shantel Titus RN 05/20/20 13:06 [facility] MAGR Preoperative Recordon 0 05-20-2020 MAGR Preoperative Record MAGR Pre-Op Record Summary Primary Physician: Vitaliy Montenegor DO Finalized Date/Time: 05/20/20 11:09:22 Pt. Name: CHRIS MORLEY Jolene Harris./Sex: 1970 MALE Med Rec #: [id number] Physician: Vitaliy Montenegro DO Financial #: [id number] Pt. Type: I Room/Bed: Admit/Disch: 05/20/20 06:48:00 - Institution: Pre-Op Case [...] Unfinalizing 05/20/20 11:09 MHBLONG Modify Pick List [facility] Nutrition Noteon 05-20-2020 Nutrition Note Pt admitted [...] risk at this time. To follow. Normal [facility] Operative Report - Surgeon/P penny 05-20-2020 Operative Report - Surgeon/Physician Preoperative diagnosis: Primary osteoarthritis left knee Postoperative diagnosis: Same Procedure: Left partial knee replacement we will compartment using mason persona knee metal on poly on metal Implants; 5 femur G tibia 8mm poly Surgeon: Dion Montenegro D.O. Anesthesia: General Indications for surgery: Progression of pain with failure of conservative treatment radiographic findings revealing jjoq-qj-diez in the medial compartment Estimated blood loss: [...] [Electronically Signed on: 05/20/2020 13:40 EST] Vitaliy Montengero DO [Verified on: 05/20/2020 13:40 EST] Vitaliy Montenegro DO [facility] Patient Handouton 05-20-2020 Patient Handout Knee [...] with your health care provider about the bber-mmq-getljlv and prescription medicines that you are taking. [...] 04/05/2006 Document Revised: 03/18/2018 Document Reviewed: 02/28/2018 ElseHello Curry Patient Education ? 2019 [employer]. [facility] UA Svyug4wo 05-20-2020 RBC (U) [#/Vol] 0-2 [facility] Comment on above: Order Comment: Urina lysis Microscopic order added on by [employer] Expert Rules system. Performed By: #### 5 [id number], [id number] #### [facility] (DEFAULT) [address] [place] [address] UA Bacteria None [facility] Comment on above: Order Comment: Urina lysis Microscopic order added on by [employer] Expert Rules system. Performed By: #### 5 [id number], [id number] #### [facility] (DEFAULT) [address] [place] [address] UA Mucous Trace [facility] Comment on above: Order Comment: Urina lysis Microscopic order added on by [employer] Expert Rules system. Performed By: #### 5 [id number], [id number] #### [facility] (DEFAULT) [address] [place] [address] UA Squam Epi Few [facility] Comment on above: Order Comment: Urina lysis Microscopic order added on by [employer] Expert Rules system. Performed By: #### 5 [id number], [id number] #### [facility] (DEFAULT) [address] [place] [address] UA WBC 0-2 [facility] Comment on above: Order Comment: Urina lysis Microscopic order added on by [employer] Expert Rules system. Performed By: #### 5 [id number], [id number] #### [facility] (DEFAULT) [address] [place] [address] UA w Culture if Ind Standard on 05-20-2020 Breakpoint UA [facility] Comment on above: Order Comment: ua cu lt if indicated urine at sotelo insertion time Performed By: #### 5 [id number], [id number] ####[facility] (DEFAULT)[address] [place] [address] Color (U) Yellow [facility] Comment on above: Order Comment: ua cu lt if indicated urine at sotelo insertion time Performed By: #### 5 [id number], [id number] ####[facility] (DEFAULT)[address] [place] [address] Culture? Not Indicated [facility] Comment on above: Order Comment: ua cu lt if indicated urine at sotelo insertion time Performed By: #### 5 [id number], [id number] ####[facility] (DEFAULT)[address] [place] [address] Glucose (U) [Mass/Vol] Negative [facility] Comment on above: Order Comment: ua cu lt if indicated urine at sotelo insertion time Performed By: #### 5 [id number], [id number] ####[facility] (DEFAULT)[address] [place] [address] Ketones Ql (U) Negative [facility] Comment on above: Order Comment: ua cu lt if indicated urine at sotelo insertion time Performed By: #### 5 [id number], [id number] ####[facility] (DEFAULT)[address] [place] [address] Micro? Indicated [facility] Comment on above: Order Comment: ua cu lt if indicated urine at sotelo insertion time Performed By: #### 5 [id number], [id number] ####[facility] (DEFAULT)[address] [place] [address] UA Bilirubin Negative [facility] Comment on above: Order Comment: ua cu lt if indicated urine at sotelo insertion time Performed By: #### 5 [id number], [id number] ####[facility] (DEFAULT)[address] [place] [address] UA Blood TRACE Abnormal NEGATIVE [facility] Comment on above: Order Comment: ua cu lt if indicated urine at sotelo insertion time Performed By: #### 5 [id number], [id number] ####[facility] (DEFAULT)[address] [place] [address] UA Clarity CLEAR Normal CLEAR [facility] Comment on above: Order Comment: ua cu lt if indicated urine at sotelo insertion time Performed By: #### 5 [id number], [id number] ####[facility] (DEFAULT)[address] [place] [address] UA Leuk Est Negative Normal NEGATIVE [facility] Comment on above: Order Comment: ua cu lt if indicated urine at sotelo insertion time Performed By: #### 5 [id number], [id number] ####[facility] (DEFAULT)[address] [place] [address] UA Nitrite Negative Normal NEGATIVE [facility] Comment on above: Order Comment: ua cu lt if indicated urine at sotelo insertion time Performed By: #### 5 [id number], [id number] ####[facility] (DEFAULT)[address] [place] [address] UA pH 5.5 Normal 5-8 [facility] Comment on above: Order Comment: ua cu lt if indicated urine at sotelo insertion time Performed By: #### 5 [id number], [id number] ####[facility] (DEFAULT)[address] [place] [address] UA Protein Negative Normal NEGATIVE [facility] Comment on above: Order Comment: ua cu lt if indicated urine at sotelo insertion time Performed By: #### 5 [id number], [id number] ####[facility] (DEFAULT)[address] [place] [address] UA Spec Grav <=1.005 Normal 1.001-1.035 [facility] Comment on above: Order Comment: ua cu lt if indicated urine at sotelo insertion time Performed By: #### 5 [id number], [id number] ####[facility] (DEFAULT)[address] [place] [address] UA Urobilinogen 0.2 mg/dL Normal 0.2-1.0 [facility] Comment on above: Order Comment: ua cu lt if indicated urine at sotelo insertion time Performed By: #### 5 [id number], [id number] ####[facility] (DEFAULT)[address] [place] [address] [place] [address] Urine Source Clean Catch [facility] Comment on above: Order Comment: ua cu lt if indicated urine at sotelo insertion time Performed By: #### 5 [id number], [id number] ####[facility] (DEFAULT)[address] [place] [address] XR Knee One or Two Views Lef [...] MD 05/20/20 1:46 pm Technologist: MARIO HAIR [facility] Progress Note - Nurseon -2 Progress Note - Nurse Spoke with pt and informed that he needs to be here at 7am and NPO after MN, he verbalizes understanding. [Electronically Signed on: 05/17/2020 09:16 EST] Hannah Jernigan RN [Verified on: 05/17/2020 09:16 EST] Hannah Jernigan RN [facility] Progress Note - Nurseon -0 Progress Note - Nurse PAT chart review for 05/06/2020 surgery reviewed by anesthesiologist, Dr. Rivera- requested that patient's surgeon and PCP be notified of patient's elevated blood pressure at [facility] and that patient's surgery has potential to be cancelled if BP remains elevated on day of surgery-no other orders received. Dr. Montenegro' s office called and Aruna notified of info ; Dr. Shorty Parra's office called and Jenny notified of info. [Electronically Signed on: 04/25/2020 14:19 EST] Nasrin Bains RN [Verified on: 04/25/2020 14:19 EST] Nasrin Bains RN [facility] C MRSA Screenon 04-24-2020 C MRSA Screen Negative [facility] Comment on above: Performed By: #### 1 [id number] ####[facility] (DEFAULT)[address] [place] [address] Coding Summaryon 04-24-2020 Coding Summary CODING DATE: 04/24/2020 [facility] STATUS: Home PAYOR: Commercial Insurance [employer] DESCRIPTION [...] Tyra Cabrera Date Saved: 04/24/2020 11:28 am [facility] Provider Orderson 04-24-2020 Provider Orders [id number] .00OTGTIFF [facility] UA w Culture if Ind Standard on 04-23-2020 Breakpoint UA Normal [facility] Comment on above: Performed By: #### 1 [id number] ####[facility] (DEFAULT)[address] [place] [address] Color (U) Yellow Normal [facility] Comment on above: Performed By: #### 1 [id number] ####[facility] (DEFAULT)[address] [place] [address] Culture? Not Indicated [facility] Comment on above: Performed By: #### 1 [id number] ####[facility] (DEFAULT)[address] [place] [address] Glucose (U) [Mass/Vol] Negative [facility] Comment on above: Performed By: #### 1 [id number] ####[facility] (DEFAULT)[address] [place] [address] Ketones Ql (U) Negative Normal [facility] Comment on above: Performed By: #### 1 [id number] ####[facility] (DEFAULT)[address] [place] [address] Micro? Not Indicated [facility] Comment on above: Performed By: #### 1 [id number] ####[facility] (DEFAULT)[address] [place] [address] UA Bilirubin Negative Normal [facility] Comment on above: Performed By: #### 1 [id number] ####[facility] (DEFAULT)[address] [place] [address] UA Blood Negative Normal NEGATIVE [facility] Comment on above: Performed By: #### 1 [id number] ####[facility] (DEFAULT)[address] [place] [address] UA Clarity CLEAR Normal CLEAR [facility] Comment on above: Performed By: #### 1 [id number] ####[facility] (DEFAULT)[address] [place] [address] UA Leuk Est Negative Normal NEGATIVE [facility] Comment on above: Performed By: #### 1 [id number] ####[facility] (DEFAULT)[address] [place] [address] UA Nitrite Negative Normal NEGATIVE [facility] Comment on above: Performed By: #### 1 [id number] ####[facility] (DEFAULT)[address] [place] [address] UA pH 6.0 Normal 5-8 [facility] Comment on above: Performed By: #### 1 [id number] ####[facility] (DEFAULT)[address] [place] [address] UA Protein Negative Normal NEGATIVE [facility] Comment on above: Performed By: #### 1 [id number] ####[facility] (DEFAULT)[address] [place] [address] UA Spec Grav 1.025 Normal 1.001-1.035 [facility] Comment on above: Performed By: #### 1 [id number] ####[facility] (DEFAULT)[address] [place] [address] UA Urobilinogen 0.2 mg/dL Normal 0.2-1.0 [facility] Comment on above: Performed By: #### 1 [id number] ####[facility] (DEFAULT)[address] [place] [address] Urine Source Clean Catch Normal [facility] Comment on above: Performed By: #### 1 [id number] ####[facility] (DEFAULT)[address] [place] [address] Vital Signs Date Time Vital Sign Value Performing Clinician Facility 09-18-2024 15:30-0400 Body height 175.26 cm [facility] 09-18-2024 15:30-0400 Body mass index (BMI) [Ratio] 28.5 kg/m2 [facility] 09-18-2024 15:30-0400 Body weight 87.54 kg [facility] 09-18-2024 15:30-0400 Diastolic blood pressure 89 mm[Hg] [facility] 09-18-2024 15:30-0400 Heart rate 92 /min [facility] 09-18-2024 15:30-0400 Respiratory rate 12 /min [facility] 09-18-2024 15:30-0400 Systolic blood pressure 152 mm[Hg] [facility] 09-17-2023 14:34-0400 Body height 175.26 cm [facility] 09-17-2023 14:34-0400 Body mass index (BMI) [Ratio] 26.2 kg/m2 [facility] 09-17-2023 14:34-0400 Body weight 80.34 kg [facility] 09-17-2023 14:34-0400 Diastolic blood pressure 86 mm[Hg] [facility] 09-17-2023 14:34-0400 Heart rate 81 /min [facility] 09-17-2023 14:34-0400 Respiratory rate 12 /min [facility] 09-17-2023 14:34-0400 Systolic blood pressure 129 mm[Hg] [facility] 03-15-2023 15:30-0500 Body height 175.26 cm Delio Ball Other [facility] Other 03-15-2023 15:30-0500 Body mass index (BMI) [Ratio] 26.55 kg/m2 Delio Ball Other [facility] Other 03-15-2023 15:30-0500 Body weight 81.56 kg Delio Ball Other [facility] Other 03-15-2023 15:30-0500 Diastolic blood pressure 86 mm[Hg] Delio Ball Other [facility] Other 03-15-2023 15:30-0500 Respiratory rate 12 /min Delio Ball Other [facility] Other 03-15-2023 15:30-0500 Systolic blood pressure 134 mm[Hg] Delio Ball Other [facility] Other 02-10-2023 15:30-0400 Body height 175.26 cm Delio Ball Other [facility] Other 02-10-2023 15:30-0400 Body mass index (BMI) [Ratio] 26.4 kg/m2 Delio Parra Other [facility] Other 02-10-2023 15:30-0400 Body weight 81.1 kg Delio Parra Other [facility] Other 02-10-2023 15:30-0400 Diastolic blood pressure 80 mm[Hg] Delio Parra Other [facility] Other 02-10-2023 15:30-0400 Respiratory rate 12 /min Delio Parra Other [facility] Other 02-10-2023 15:30-0400 Systolic blood pressure 134 mm[Hg] Delio Parra Other [facility] Other Encounters Encounter Date Encounter Type Care Provider Facility Start: 10-17-2024 End: 10-17-2024 ambulatory Delio Parra DO Work Phone: [facility] Work Phone: Start: 10-17-2024 End: 10-17-2024 Patient encounter procedure Myra Gonzales DO -[facility] Neu[facility] Work Phone: Start: 09-23-2024 Non-patient / Non-visit Delio argueta DO -[place] [facility] Work Phone: Start: 09-18-2024 End: 09-18-2024 ambulatory [facility] Work Phone: Start: 09-18-2024 End: 09-18-2024 Encounter for general adult medical examination without abnormal findings [facility] Start: 09-18-2024 End: 09-18-2024 Patient encounter procedure [facility] Physician [facility] Work Phone: Start: 09-18-2024 End: 09-18-2024 Patient encounter status Delio Parra [facility] Start: 05-22-2024 End: 05-22-2024 Bamboo flowsheet Nena Garcia [employer] POWER CHISEL OPERATOR Work Phone: [facility] [facility] Start: 05-22-2024 End: 05-22-2024 Bamboo flowsheet Nena Garcia Aplwilver POWER CHISEL OPERATOR Work Phone: [facility] Start: 05-22-2024 End: 05-22-2024 Office outpatient visit 10 minutes Nena Lewis POWER CHISEL OPERATOR Work Phone: [facility] Comment on above: Status post left par tial knee replacement (Primary Dx); Left knee pain, unspecified chronicity Start: 05-22-2024 End: 05-22-2024 ambulatory NENA Jose LEWIS Not Available Start: 09-17-2023 End: 09-17-2023 ambulatory [facility] Work Phone: Start: 09-17-2023 End: 09-17-2023 Encounter for general adult medical examination without abnormal findings [facility] Start: 09-17-2023 End: 09-17-2023 Patient encounter procedure [facility] Work Phone: Start: 06-04-2023 End: 06-04-2023 ambulatory VITALIY MONTENEGRO Not Available Start: 06-03-2023 Chart abstracting Vitaliy jaquez DO Work Phone: [facility] Start: 03-15-2023 End: 03-15-2023 ambulatory Delio Ball Other [facility] Other Start: 03-15-2023 Office outpatient vi sit 15 minutes Delio Ball [facility] Start: 02-10-2023 End: 02-10-2023 ambulatory Delio Ball Other [facility] Other Start: 02-10-2023 Office outpatient vi sit 15 minutes Delio Ball [facility] Start: 01-08-2023 End: 01-09-2023 ambulatory [facility] Start: 09-14-2022 Encounter for genera l adult medical examination without abnormal findings DR DELIO PARRA [facility] Start: 09-12-2022 Telephone encounter Delio Parra [facility] Start: 09-12-2022 End: 09-13-[address] DELIO PARRA Facility:[facility] Start: 09-12-2022 End: 09-13-2022 Encounter for general adult medical examination without abnormal findings DR DELIO PARRA Facility:[facility] Procedures Date Procedure Procedure Detail Performing Clinician Start: 05-22-2024 Radiologic examinati on knee 1/2 views Nena Lewis NP Work Phone: Start: 09-12-[address] MARY IN [place] Comment on above: Performed By: #### [facility] #### [facility] [address] [place] [address] Dr. Edward Newell Plan of Treatment Date Care Activity Detail Author Start: 05-24-2025 End: 05-24-2025 Patient encounter procedure 05/24/2025 8:00 AM EST Office Visit [facility] [address] [place] [phone] Sushil Goodrich PA [address] [facility] [address] [place] [address] [facility] Start: 09-19-2024 [facility] Work Phone: Start: 05-22-2024 End: 05-22-2024 Patient encounter procedure 05/22/2024 8:00 AM EST Office Visit [facility] [address] [facility] [address] [place] [address] Nena Lewis NP [address] [facility] [address] [place] [address] Status post left partial knee replacement (Primary Dx) [facility] Comment on above: Status post left par tial knee replacement (Primary Dx) Start: 12-19-2023 Influenza vaccination Influenza Vacc ine (#1) [facility] Start: 06-04-2023 End: 06-04-2023 Patient encounter procedure 06/04/2023 7:15 AM EST Office Visit [facility] [address] [place] [address] Vitaliy Montenegro DO [address] [facility] [address] [place] [address] [facility] Start: 12-18-2022 Influenza vaccination Influenza Vacc ine (#1) [facility] Start: 1970 Screening for malign ant neoplasm of colon [facility] Comprehensive metabo lic 1999 panel - Serum or Plasma [facility] Comprehensive metabo lic 1999 panel - Serum or Plasma [facility] Patient referral [facility] Work Phone: [facility] Immunizations Immunization Date Immunization Notes Care Provider Fa cility 03-21-2021 COVID-19 Vaccine Pfi zer - Documentation Purposes Only Delio Parra Other [facility] 07-23-2020 COVID-19 Vaccine Pfi zer - Documentation Purposes Only Delio Fidel Other [facility] 07-01-2020 COVID-19 Vaccine Pfi zer - Documentation Purposes Only Delio Parra Other [facility] Payers Date Payer Category Payer Unknown [id number] 2017 Private Health Insurance [id number] 1970 Unknown [id number] 2.16.84 [id number] 1970 Unknown [id number] 2.16.84 [id number] 1969 Unknown [id number] 2.16.84 [id number] 1969 Unknown [id number] 2.16.84 [id number] 1969 Unknown [id number] 2.16.84 [id number] 1969 Unknown [id number] 2.16.84 [id number] 1969 Unknown [id number] 2.16.84 [id number] 1969 Unknown [id number] 2.16.84 [id number] 1969 Unknown [id number] 2.16.84 [id number] 1959 Unknown [id number] Private Health Insurance [id number] Social History Date Type Detail Facility Start: 10-07-2022 End: 05-22-2024 Sex Assigned At [facility] Other Start: 09-17-2022 Tobacco smoking status NCIS Never smoked tobacco [facility] Start: 09-17-2022 Tobacco use and exposure Smokeless tobacco non-user [facility] Start: 02-24-2023 End: 05-22-2024 Alcohol intake Lifetime non-drinker (finding) [facility] Start: 10-07-2022 End: 05-22-2024 History of Social function [facility] Start: 1970 Sex Assigned At Not on file N [facility] Start: 1970 Sex Assigned At Male F [facility] Tobacco smoking status NCIS Unknown if ever smoked [facility] Work Phone: Start: 09-18-2024 Sex Male (finding) [facility] Evaluation note 09-18-2024 Note Date & Type Note Facility 09-18-2024 Evaluation note Diagnosis Onset Date Resolution Carpal tunnel syndrome on both sides acute September 18, 2024 3:05pm Hypercholesterolemia acute September 18, 2024 3:05pm Hypertension acute September 18 3:05pm Lumbar spondylosis acute September 182024 3:05pm Overweight acute September 18, 2024 3:05pm Screening PSA (prostate specific antigen) acute September 18, 2024 3:05pm Tubular adenoma of colon acute September 18, 2024 3:05pm Wellness examination noneactive September 18, 2024 3:05pm [facility] Work Phone: Evaluation note 09-18-2024 Note Date & Type [...] Wellness examination noneactive September 18, 2024 3:05pm [facility] Work Phone: History of Present illness Narrative 05-22-2024 Nena Lewis NP - 05/22/2024 8:00 AM EST Note Date [...] Medical History: Diagnosis Date Arthritis COVID-19 Hypertension (CMS/HCC) ALLERGIES: No Known Allergies VITALS: Visit Vitals [...] activities as tolerated documented in this encounter [facility] Evaluation note 03-15-2023 Note Date & Type [...] They may safely use Tylenol as needed. [facility] Other Evaluation note 02-10-2023 Note Date & [...] normal BMI. Improved due to weight loss [facility] Other Progress note 01-08-2023 Note Date & [...] to urgent care and XR were negative. [facility] patient. Currently with restrictions of 10lb weight [...] weeks. Milan Babb MD Orthopaedic Surgery PGY-2 [facility] 01/08/23 12:06 PM By using the attestations [...] be an additional personal documentation from me. [facility] History general Narrative - Reported 09-26-2020 Note Date & Type Note Facility 09-26-2020 History general N arrative - Reported Type Medical History Essential hypertension Medical History Adenoma of colon Medical History Bilateral carpal tunnel syndrome Surgical History Colonoscopy 09/26/2020 Surgical History Open partial replace ment of left knee joint 05/20/2020 Surgical History appendectomy 2010 Hospitalization History see surgical history [facility] Other Evaluation note Note Date & Type Note Facility Evaluation note No Information [email or web address] Other Evaluation note Note Date & Type Note Facility Evaluation note Diagnosis Onset Date Hypertension acute Lumbar spondylosis acute Overweight acute Wellness examination noneact [facility] Work Phone: Evaluation note Note Date & [...] May 17, 2023 3:13pm Hospital Course Note [facility] Discharge Summary PERSON INFORMATION Name CHRIS MORLEY Age 50 Years 1970 Sex MALE Language Japanese PCP Delio Parra Marital Status Med Service Med/Surg Acct# Arrival 05/20/2020 06:48:00 Visit Reason SURGERY - LEFT UNI VS LEFT TOTAL KNEE Acuity LOS 000 24:28 Address: [address] [place] [address] Comment: PROVIDER INFORMATION VITALS INFORMATION Vital Sign [...] tab (more content not included)... Note Patient: HARRIET MORLEYMAURA Canchola RN: [birth year] Age: 50 years Sex: [...] Amadeo Quintana MD Procedure Findings Note Patient: CHRIS MORLEY RN: [birth year] Age: 50 years Sex: MALE [...] Wellness examination September 18, 2024 3:05 pm Chief Complaint Admit Date Wellness September 18, 2024 3:05p m EMG BUE per Dr. Shorty Parra October 17, 2024 11:45am Reason for Visit Admit Date Carpal tunnel syndrome on both sides Sebastian e 2024 3:05pm Hypercholesterolemia September 18, 2024 3:05 [...] DATE CREATED AUTHOR AUTHOR'S ORGANIZ ATION 09/25/2022 [facility] DATE CREATED AUTHOR AUTHOR'S ORGANIZ ATION 01/24/2023 [facility] DATE CREATED AUTHOR AUTHOR'S ORGANIZ ATION 05/28/2024 [facility] EPIC REASON FOR VISIT (unrecogniz ed section and content) Reason Comments Follow-up Care Teams (unrecognized sec tion and content) Security Auditor Relationship Specialty Start Date End Date Delio Parra MD [address] [place] [id number] PCP - General Internal Medicine 09/11/22 Team Status: Active Member Role Status Dates Delio Parra DO Primary Care Provider Active Team Status: Inactive Member Role Status Dates Delio Parra DO Primary Care Provide r, Attending Provider Active Start: September 17, 2023 End: September 17, 2023 Security Auditor Relationship Specialty Start Date End Date Delio Parra MD [address] [place] [phone] PCP - General Internal Medicine 09/11/22 Security Auditor Relationship Specialty Start Date End Date Delio Parra MD [address] [place] [phone] PCP - General Internal Medicine 09/11/22 Team Status: Inactive Member Role Status Dates Delio Fidel , Primary Care Provide r, Attending Provider Active Start: September 18, 2024 End: September 18, 2024 Team Status: Inactive Member Role Status Dates Delio Parra , DO Primary Care Provider Active Start: September 18, 2024 End: September 18, 2024 Delio Fidel , DO Attending Provider Active Sta rt: September 18, 2024 End: September 18, 2024 Team Status: Active Member Role Status Dates Delio Parra , DO Primary Care Provider Active Start: September 23, 2024 Delio Parra , DO Attending Provider Active Sta rt: September 23, 2024 Team Status: Inactive Member Role Status Dates Delio Fidel , Primary Care Provider Active Start: October 17, 2024 End: October 17, 2024 Myra Gonzales DO Attending Provider Active Sta rt: October 17, 2024 End: October 17, 2024 Goals (unrecognized section and content) Goals [...] BE BASED ON THE PRIMARY CLINICAL RECORDS. [employer] [facility]. provides no warranty or guarantee of the accuracy or completeness of information in this document.
[2024-10-19 04:07] LABS: Vitamin B12 575 pg/mL (232-1245)
[2024-10-20 15:08] LABS: Albumin 3.9 g/dL (2.9-4.4); Alpha-1-Globulin 0.2 g/dL (0.0-0.4); Alpha-2-Globulin 0.8 g/dL (0.4-1.0); Free Kappa Lt Chains,S 7.2 mg/L (3.3-19.4); Free Lambda Lt Chains,S 10.1 mg/L (5.7-26.3); Gamma Globulin 0.8 g/dL (0.4-1.8); Immunoglobulin A, Qn, Serum 172 mg/dL (90-386); Kappa/Lambda Ratio,S 0.71 (0.26-1.65)
== END 2024-10-18 14:31 | disposition home or self-care (01) ==
LOC: LAB 14:34
PROVIDERS: PCP Internal Medicine; Visit Provider Internal Medicine
DX: R20.0 Anesthesia of skin (principal); R20.2 Paresthesia of skin; R53.83 Other fatigue
CPT/HCPCS: 36415; 82607; 82784; 83521; 84155; 84165; 84443; 86334